=== PATIENT | male | born 1940 | race Caucasian/White ===

== ENCOUNTER 2016-03-22 10:24 | Inpatient (IN) | payer MEDICARE ==
[~2016-03-22] VITALS: Ht 185.4 cm; Wt 106.4 kg
--- NOTE | 2016-04-02 12:24 | MH ---
cc: TIN ARELLANO DATE OF ADMISSION: 04/11/2016 ADMITTING DIAGNOSIS Severe osteoarthritis of the left hip, pain left hip, gait disturbance. HISTORY OF PRESENT ILLNESS The patient is a 75-year-old white male who has experienced pain in his left hip of at least six-months duration. He had been accustomed to exercising on a regular basis which included swimming activities at the [facility] and riding a bicycle, and while conforming to this exercise routine he began to experience generalized soreness about the left groin area radiating into his knee. He was later seen by his primary care physician, Dr. Mc Benton, who ordered x-ray studies of both his lumbar spine and his left hip, the results of which identified multilevel degenerative changes throughout the lumbar region as well as severe osteoarthritis of the left hip. The patient later underwent a fluoroscopic-guided injection of his left hip for which he was able to note a definite trend of improvement with regards to his hip discomfort. He was also prescribed pain medication per Dr. Benton that he had utilized in a limited fashion secondary to constipation being associated with the medication. He presented to the undersigned physician in December of this past year indicating that he was having some difficulty conforming to his ambulatory activities. A review of his x-ray studies involving his right hip were without appreciable degenerative changes but radiographs of his left hip did demonstrate severe osteoarthritic involvement. Findings and treatment options were reviewed with the patient at that time. The pros and cons of continuing with conservative management versus operative intervention involving total hip replacement were outlined in detail. Emphasis was made regarding the fact that the decision to proceed with surgery would be left entirely to the patient's discretion. The patient considered options in this regard while he continued to conform to conservative modalities, but continued to have pain about the left hip area for which he was having ongoing difficulties conforming to his daily routine. He did subsequently undergo a repeat fluoroscopic injection of his left hip, again with only temporary relief being appreciated. He again returned to the office indicating that he was having increasing difficulties as related to all ambulatory activities and felt that he was ready to proceed with a more definitive course of treatment. Once again the involvement of total hip arthroplasty was outlined in detail for which the patient indicated his full understanding and expressed his desire to proceed accordingly. In compliance with his wishes he is currently being admitted in order that the above be accomplished. PAST MEDICAL HISTORY His past medical history, hospitalizations and surgeries have included: 1. Hemorrhoidectomy. 2. Arthroscopic surgery of his right knee x2 followed by 3. Total knee arthroplasty. 4. LASIK surgery of his right eye. 5. Colonoscopy. The patient's medical illnesses include hypertension. MEDICATIONS 1. Lisinopril 20 mg daily. 2. Hydrochlorothiazide 25 mg daily. 3. Simvastatin 40 mg daily. 4. Doxazosin 4 mg twice daily. 5. Atenolol 50 mg daily. 6. Temazepam 15 mg at bedtime. ALLERGIES THE PATIENT DESCRIBES A DRUG ALLERGY TO CORTISONE WHICH HAS RESULTED IN A RASH AND REDNESS OF THE FACIAL AREA BUT NO ASSOCIATED SHORTNESS OF BREATH. REVIEW OF SYSTEMS He does wear glasses. Denies headache, seizure or syncope. No sinus congestion but he does report a history of a deviated nasal septum secondary to a nasal fracture during his youth. Diminished auditory acuity for which hearing aids are utilized. No history of pneumonia or tuberculosis. No angina or heart disease. He is medically managed for hypertension. His appetite is good. He has frequent constipation for which he utilizes various [id number] products as well as giving himself a periodic enema. No hepatitis, gallbladder disease or ulcers. Positive history of hemorrhoids as noted. No urinary tract infection. No kidney stones. No prostate disease. No history of fractures. No psychiatric illness. His remaining review of systems is unremarkable and noncontributory. FAMILY HISTORY The patient has been 28 years, this being a second marriage. His is 56 years of age and described as being in good health. No children. Family history is otherwise positive for hypertension and heart disease. 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 He completed a high school education with 2 years of college thereafter. He admits to a three-pack per day use of tobacco for almost 25 years, having quit smoking at approximately 39 years of age. Ethanol consumption in the form of wine with dinner. PHYSICAL EXAMINATION Height 6 feet 1 inch, weight 226 pounds. GENERAL: An alert, oriented and responsive 75-year-old white male who sits quietly upon the examination table with no obvious distress. HEAD, EYES, EARS, NOSE, AND THROAT: Pupils are equally round and reactive to light. Bilateral corneal arcus. Extraocular movements full. External nares clear with deviated nasal septum to the right. External auditory canals clear. Dental intact. Mucous membranes pink and moist. Pharynx clear. NECK: Supple. Active range of motion with no significant pain. Carotid pulse palpable bilaterally. Trachea midline. Thyroid without enlargement. LUNGS: Clear to auscultation and percussion. BACK: No CVA tenderness. Mild discomfort of the lower lumbar spine indicated to be chronic in nature. HEART: Regular rhythm. No murmur or gallop. ABDOMEN: Soft, nontender. Bowel sounds present. RECTAL: Per primary care physician. EXTREMITIES: Left Hip: No localizing tenderness to palpation. There is restricted mobility of the hip joint in all ranges assessed being most pronounced with internal rotation and pain associated with the extremes of motion. An additional sensation of crepitation is elicited from the hip joint. Straight leg raising is negative at 80 degrees. José sign is positive. Distal sensory grossly intact. Antalgic gait. NEUROLOGIC: Cranial nerves II-XII grossly intact excluding diminished auditory acuity. IMPRESSION Severe osteoarthritis of the left hip pain, pain left hip, gait disturbance. PLAN Left total hip arthroplasty. The nature of the planned surgical procedure, the potential complications and risks associated, the expectations of surgery and the consent form were thoroughly reviewed with the patient prior to his admission to the hospital. Mukund has indicated his full understanding regarding all of the above and given consent to proceed with treatment as outlined. Medical evaluation and clearance for surgery will be completed by Dr. Mc Benton preoperatively. Tin Arellano MD NBS/BT /11:58 AM /12:10 PM
[2016-04-04] MEDS ORDERED: HYDR25TA5 PO (09:50)
[2016-04-04] MEDS ORDERED: HYDR-3516 PO (09:50)
[2016-04-04] MEDS ORDERED: LISI-515 PO (09:50)
[2016-04-04] MEDS ORDERED: ATEN50TA PO (09:50)
[2016-04-04] MEDS ORDERED: SIMV40TA PO (09:50)
[2016-04-04] MEDS ORDERED: DOXA1TAB34 PO (09:50)
[2016-04-04] MEDS ORDERED: TEMA30CA PO (09:50)
[2016-04-11] MEDS ORDERED: ceFAZolin 2 GM PREMIX 50 ML IV SCH (05:45)
[2016-04-11] MEDS ORDERED: LACTATED RINGER'S 1000 ML IV SCH (05:45)
[2016-04-11] MEDS ORDERED: METOPROLOL TARTRATE 25 MG TAB PO PRN (05:45)
[2016-04-11] MEDS ORDERED: DO NOT ADM ANY ANTICOAGULANT DRUGS XX PRN ×2 (05:45→09:40)
[2016-04-11] MEDS ORDERED: INSULIN HUMAN REGULAR 1,000 UNITS/10 ML VIAL SQ PRN (05:45)
[2016-04-11] MEDS ORDERED: POVIDONE IODINE 7.5% SCRUB 118 ML BOTTLE TOP SCH (05:45)
[2016-04-11] MEDS ORDERED: SODIUM CHLORID 0.9% 500 ML IV SCH (05:45)
[2016-04-11 05:50] VITALS: BP 110/70; PULSE 60; RESP 16; TEMP 98.3; TEMP 99.7; O2SAT 94
[2016-04-11] MEDS ORDERED: ceFAZolin INJ 1,000 MG VIAL ONE (06:16)
[2016-04-11] MEDS ORDERED: ACETAMINOPHEN 1000 MG/100 ML VIAL IV ONE (06:45)
[2016-04-11] MEDS ORDERED: MIDAZOLAM HCL 2 MG/2 ML VIAL ONE (06:45)
[2016-04-11] MEDS ORDERED: fentaNYL CITRATE 250 MCG/5 ML AMP ONE (06:45)
[2016-04-11] MEDS ORDERED: FAMOTIDINE 20 MG/2 ML VIAL ONE (06:45)
[2016-04-11] MEDS ORDERED: TRANEXAMIC ACID 1 GM PRIOR TO PROCEDURE IV SCH ×2 (07:00)
[2016-04-11] MEDS ORDERED: MORPHINE SULFATE 4 MG/ML INJ ONE (09:44)
[2016-04-11] MEDS ORDERED: *RESP: ALBUTEROL 2.5 MG/3 ML NEB (PRN) PERIprocedural Use ONLY NEB ONE (09:52)
[2016-04-11] MEDS ORDERED: MAGNESIUM HYDROXIDE SUSP 30 ML CUP PO PRN (10:00)
[2016-04-11] MEDS ORDERED: MISCELLANEOUS PHARMACY INFORMATION XX ONE (10:00)
[2016-04-11] MEDS ORDERED: ACETAMINOPHEN/HYDROcodone 325 MG/5 MG TAB PO PRN (10:00)
[2016-04-11] MEDS ORDERED: NALOXONE HCL 0.4 MG/ML AMP IV PRN (10:00)
[2016-04-11] MEDS ORDERED: BISACODYL 10 MG SUPP PR PRN (10:00)
[2016-04-11] MEDS ORDERED: Post-op Orders (for Pharmacy) MISC XX ONE (10:00)
[2016-04-11] MEDS ORDERED: diphenhydrAMINE HCL 25 MG CAP PO PRN (10:00)
[2016-04-11] MEDS ORDERED: TRANEXAMIC ACID INJ 1,000 MG in SODIUM CHLORIDE 0.9% INJ 100 ML IV SCH (10:00)
[2016-04-11] MEDS ORDERED: TRANEXAMIC ACID 1 GM POST-OP IV SCH ×2 (10:00)
[2016-04-11] MEDS ORDERED: ZOLPIDEM TARTRATE 5 MG TAB PO PRN (10:00)
[2016-04-11] MEDS ORDERED: ONDANSETRON HCL 4 MG/2 ML VIAL IVP PRN (10:00)
--- NOTE | 2016-04-11 10:10 | MP ---
cc: TIN EASON DATE OF OPERATION 11 April 2016 PREOPERATIVE DIAGNOSES Severe osteoarthritis of the left hip. Pain left hip. Gait disturbance. POSTOPERATIVE DIAGNOSES Severe osteoarthritis of the left hip. Pain left hip. Gait disturbance. PROCEDURE Left total hip arthroplasty. SURGEON MD Adan ANESTHESIA General endotracheal. INDICATIONS A 75-year-old white male with pain of the left hip of at least 6 months' duration. He had been accustomed to exercising on a regular basis which included swimming at the [employer] and riding a bicycle but while he was conforming to this exercise routine he began to experience generalized soreness about his left groin radiating into his knee. He was initially evaluated by his primary care physician Dr. Mc Benton who had ordered x-ray studies of both his lumbar spine and his left hip, the results of which identified multilevel degenerative changes throughout the lumbar region as well as severe osteoarthritis of his left hip. The patient later received a fluoroscopic-guided injection of his left hip which did afford him a definite trend of improvement with regards to his hip discomfort. He was also prescribed pain medication per Dr. Benton that he utilized in a limited fashion secondary to constipation being associated as a side-effect. He presented to the undersigned physician in December of this past year indicating he was having difficulty conforming to ambulatory activities. His x-ray studies did reveal degenerative changes of his left hip of a severe nature. The findings and treatment options were reviewed. The pros and cons of continuing with conservative management versus operative intervention involving total hip arthroplasty were outlined in detail. Emphasis was made regarding the fact that the decision to proceed with surgery would be left entirely to the patient's discretion. The patient considered his options in this regard while he continued to conform to conservative modalities but continuing to experience pain about the left hip for which he was having ongoing difficulties conforming to his daily routine. He subsequently received a repeat fluoroscopic injection which again afforded him only a temporary relief. He returned to the office in the more recent past indicating he was having increasing difficulty as related to all ambulatory activities and felt that he was ready to proceed with a more definitive course of treatment. Once again the involvement of total hip arthroplasty was outlined in detail for which the patient indicated his full understanding and expressed his desire to proceed accordingly. In compliance with his wishes, he has currently been admitted in order that total hip replacement be completed. FORMAT Following induction of satisfactory general anesthesia by endotracheal intubation as completed per the Department of Anesthesia, the patient was positioned upon the operating table in a right lateral decubitus fashion. The left hip and lower extremity proper were isolated with a U drape, thereafter being prepped with Betadine solution and draped into a sterile field in the routine manner. Prior to initiation of the actual procedure, the standard time-out protocol was completed. All parameters were appropriately addressed and confirmed by operating room personnel. A standard posterolateral approach to the hip was initiated through a sharp skin incision and developed through underlying subcutaneous tissue with hemostasis maintained by electrocautery. By deepening dissection the fascia overlying the gluteus musculature was exposed and thereafter sharply incised to the limits of the incision. The underlying gluteus fibers were divided with the Bovie on cutting current. Progressive dissection facilitated exposure of the short external rotators structures. The piriformis tendon was utilized as an anatomical landmark and division of these structures completed in a superior to inferior orientation and reflected medially exposing the posterior capsule. The sciatic nerve was protected. An L-shaped capsulotomy was accomplished through which a posterior dislocation of the femoral head was completed. Examination revealed severe degenerative changes throughout the majority of the femoral head with complete erosion of articular cartilage and subchondral bone exposed. The femoral template was positioned for alignment orientation. The neck was scored and thereafter divided with a power saw, the amputated segment being passed to the back table as surgical specimen. Attention was initially directed to the proximal femur. Cancellus bone was harvested. The tapered reamer was inserted for alignment orientation. Sequential rasping and broaching was accomplished from 7 through 14 mm with the calcar idalia being utilized at the 14-mm stage. The 14-mm stem was determined to be a favorable fit. The trial component being removed, attention was redirected to the acetabulum. The labrum and reactive soft tissue were sharply excised. Progressive reaming was accomplished from 48 through 53 mm. The 54 trial shell was positioned and determined be satisfactory. All trial components being removed, the wound was copiously irrigated with pulsating antibiotic solution, hemostasis maintained by electrocautery. Harvested cancellous bone was digitally packed into the acetabulum and thereafter a 54-mm Continuum Quinn was firmly seated in approximately 45 degrees inclination to the horizontal and slight anteversion. A single 25-mm, 6.5 cancellous screw was inserted superiorly to augment fixation. The permanent Continuum Trilogy high-wall acetabular liner was firmly seated into the acetabular cup and thereafter the 40-mm trial femoral broach was repositioned and a trial reduction followed utilizing a 36-mm modular head with -6-mm neck length adapter. The hip readily reduced and was carried through a passive range of motion with stability demonstrated at 90 degrees flexion and 45 degrees internal rotation. An open dislocation was completed and the trial femoral components were removed. The canal was thoroughly irrigated and dried and thereafter the permanent 40-mm echo biometric standard femoral stem was firmly seated and to a 36-mm ceramic head with -6-mm neck length adapter was attached and open reduction completed and repeat range of motion again noted stability as previously described. Final irrigation was accomplished with hemostasis maintained. The posterior capsule was repaired with 0 Vicryl suture. Piriformis tendon and short external rotators structures were reapproximated in a similar manner. Hemovac drain tubes were inserted through superior stab wounds, the fascia of the gluteus musculature was reapproximated with a running 0 Vicryl suture. The remaining portion of the wound was closed in layers in the routine manner, skin margins being reapproximated with a running subcuticular 3-0 Vicryl suture over which Steri-Strips were applied. Xeroform gauze and a bulky dry sterile dressing were placed. The patient was repositioned into a supine orientation when abduction splint was attached. Anesthesia was discontinued. He was thereafter transferred to a hospital bed and returned to the recovery room in satisfactory condition having tolerated his operative procedure well. Estimated blood loss was approximately 400 cc as determined per anesthesia. The femoral implants were of the Biomet saw tailer, the acetabular components completed by Quinn. MD IMMANUEL Calderon/SSB /9:38 AM /9:54 AM
[2016-04-11] MEDS: DEXT 5%-NACL 0.45% 1000 ML INJ 1,000 ML IV SCH ×2 (10:18→18:35)
--- NOTE | 2016-04-11 10:18 | RADRPT ---
EXAM DATE/TIME: 04/11/2016 09:52 [facility] COMPARISON: No previous studies available for comparison. INDICATIONS : Post-op left hip surgery. MEDICAL HISTORY : None. SURGICAL HISTORY : Left hip replacment. ENCOUNTER: Initial ACUITY: 2 days PAIN SCORE: Non-responsive. LOCATION: Left hip. FINDINGS: The patient is status post a total hip arthroplasty with a bipolar prosthesis. Prosthesis is well-sea roegr. Alignment is anatomic. A fracture is not appreciated. CONCLUSION: Anatomic alignment. Gibran Hu MD FACR Board Certified Radiologist. This report was verified electronically.
[2016-04-11] MEDS: MORPHINE SULFATE 30 MG/30 ML PCA IV SCH (10:19)
[2016-04-11 11:51] VITALS: BP 104/62; PULSE 64; RESP 17; TEMP 96.2; O2SAT 92
[2016-04-11] MEDS: PCA - TOTAL MG MORPHINE DELIVERED PER SHIFT SCH ×2 (13:00→21:12)
[2016-04-11] MEDS ORDERED: MAGNESIUM HYDROXIDE SUSP 30 ML CUP PO ONE (13:15)
[2016-04-11] MEDS ORDERED: NEOSTIGMINE 3 MG/3 ML SYR IV ONE (14:30)
[2016-04-11] MEDS ORDERED: ePHEDrine/NS 25 MG/5 ML SYR IV ONE (14:30)
[2016-04-11] MEDS ORDERED: PROPOFOL 200 MG/20 ML AMP IV ONE (14:30)
[2016-04-11] MEDS ORDERED: LACTATED RINGER'S 1000 ML INJ 1,000 ML IV ONE (14:30)
[2016-04-11] MEDS ORDERED: PHENYLEPH/NS 1000 MCG/10 ML SYR IV ONE (14:30)
[2016-04-11] MEDS ORDERED: ONDANSETRON HCL 4 MG/2 ML VIAL IV PUSH ONE (14:30)
[2016-04-11 16:00] VITALS: BP 109/55; PULSE 60; RESP 18; TEMP 96; O2SAT 94
[2016-04-11] MEDS ORDERED: ATEN25TA PO (17:38)
[2016-04-11] MEDS: HYDROCHLOROTHIAZIDE 25 MG TAB PO SCH (18:23)
[2016-04-11] MEDS: ATORVASTATIN 20 MG TAB PO SCH (18:24)
[2016-04-11] MEDS: LISINOPRIL 20 MG TAB PO SCH (18:25)
--- NOTE | 2016-04-11 19:21 | PD.CONS ---
HPI [facility] Consult Requested By Dr. Arellano Reason for Consult Medical management Primary Care Physician Silvino Benton MD Diagnoses: (1) Osteoarthritis (2) Hypertension (3) Insomnia (4) Constipation (5) S/P total hip arthroplasty History of Present Illness 75-year-old male with a medical history significant for hypertension, BPH, insomnia, constipation, and osteoarthritis admitted to the hospital for left hip arthroplasty. Patient is seen postop in his room. He reports a history of osteoarthritis involving the knees and the hip. Previously he had the right knee replaced. His left hip has been getting worse to the point he was having significant difficulties with walking. He failed conservative measures and was admitted for surgical intervention. Currently reports that he is feeling okay. He wants his medications to be on the same schedule that he is at home. He reports that his blood pressure has been controlled on the current medications. No episodes of chest pain or shortness of breath. He normally takes Dulcolax and enema as needed for his constipation. Review of Systems Constitutional: DENIES: Fever, Chills Endocrine: DENIES: Polydipsia, Polyuria Musculoskeletal: COMPLAINS OF: Joint pain, Stiffness, DENIES: Back pain Except as stated in HPI: all other systems reviewed are Neg Past Family Social History Allergies: Coded Allergies: Cortisone (Verified Allergy, Severe, Rash, 04/11/16) Past Medical History Osteoarthritis Hypertension BPH Insomnia Chronic constipation Past Surgical History Right knee replacement Hemorrhoidectomy Reported Medications Reported Meds & Active Scripts Active Reported Atenolol 25 Mg Tab 25 Mg PO HS Temazepam 30 Mg Cap 30 Mg PO HS Lisinopril 20 Mg Tab 20 Mg PO DAILY Simvastatin 40 Mg Tab 40 Mg PO DAILY Hydrochlorothiazide 25 Mg Tab 25 Mg PO DAILY Doxazosin (Doxazosin Mesylate) 4 Mg Tab 4 Mg PO BID Hydrocodone-Acetaminophen 5-325 mg Tab 1 Tab PO Q4H PRN Family History Both parents with history of heart disease and MS. Social History The patient quit smoking over 40 years ago. He drinks 1-2 glasses of wine with dinner. He reports that he is normally active with exercising. Physical Exam Vital Signs Vital Signs Date Time Temp Pulse Resp B/P Pulse Ox O2 Delivery O2 Flow Rate FiO2 04/11/16 16:00 96.0 60 18 109/55 94 04/11/16 13:00 18 04/11/16 11:51 96.2 64 17 104/62 92 04/11/16 10:30 97.7 62 12 124/58 95 Nasal Cannula 3 04/11/16 10:19 15 04/11/16 10:15 63 14 122/60 94 Nasal Cannula 3 04/11/16 10:00 60 13 114/62 94 Nasal Cannula 3 04/11/16 09:45 73 12 91/52 92 Nasal Cannula 3 04/11/16 09:38 97.7 62 16 96/52 95 Simple Mask 6 04/11/16 05:50 98.3 60 16 110/70 94 Physical Exam GENERAL: Elderly male in no apparent distress. SKIN: No rashes, ecchymoses or lesions. Cool and dry. HEAD: Atraumatic. Normocephalic. No temporal or scalp tenderness. EYES: Pupils equal round and reactive. Extraocular motions intact. No scleral icterus. No injection or drainage. ENT: Nose without drainage. NECK: Trachea midline. No JVD or lymphadenopathy. Supple, nontender, no meningeal signs. CARDIOVASCULAR: Regular rate and rhythm without murmurs, gallops, or rubs. RESPIRATORY: Clear to auscultation. Breath sounds equal bilaterally. No wheezes , rales, or rhonchi. GASTROINTESTINAL: Abdomen soft, non-tender, nondistended. No hepato-splenomegaly , or palpable masses. No guarding. MUSCULOSKELETAL: Postop left hip arthroplasty. Dressing appear intact. He has a drain in place that is draining sanguinous fluid. Neurovascularly intact distally. NEUROLOGICAL: Awake and alert. Normal speech. Laboratory Laboratory Tests Test 04/11/16 05:45 Blood Type O POSITIVE Antibody Screen NEGATIVE Blood Bank Comment Imaging Last Impressions Hip X-Ray 04/11/16 0946 Signed Impressions: Service Date/Time: Monday, April 11, 2016 09:52 - CONCLUSION: Anatomic alignment. Gibran Hu MD Assessment and Plan Problem List: (1) S/P total hip arthroplasty ICD Code: Z96.649 Status: Acute Plan: Routine postop care per orthopedics. Pain control. Patient has had issues with constipation in the past. We'll schedule Pamela-Colace. Follow urine output. He has had urinary retention in the past. Continue doxazosin DVT prophylaxis with Xarelto per orthopedics. (2) Osteoarthritis ICD Code: M19.90 Status: Acute (3) Hypertension ICD Code: I10 Status: Chronic Plan: Currently controlled. Continue antihypertensives. (4) Insomnia ICD Code: G47.00 Status: Acute Plan: Patient is on a regimen at home that works well for him. He takes temazepam at 9 PM and if needed takes another dose at midnight. Will continue the same. (5) Constipation ICD Code: K59.00 Status: Acute Plan: Schedule Pamela-Colace (6) BPH (benign prostatic hyperplasia) ICD Code: N40.0 Status: Acute Plan: Continue doxazosin. Discussed Condition With With RN. Problem Qualifiers (1) Hypertension: Qualified Code: I10 - Essential hypertension Chiki Turner MD Apr 11, 2016 19:21
[2016-04-11] MEDS: DOXAZOSIN MESYLATE 4 MG TAB PO SCH (19:33)
[2016-04-11] MEDS: ATENOLOL 25 MG TAB PO SCH (19:33)
[2016-04-11 20:00] VITALS: BP 121/60; PULSE 87; RESP 16; TEMP 97.2; O2SAT 93
[2016-04-11] MEDS ORDERED: ATENOLOL 25 MG TAB PO SCH (21:00)
[2016-04-11] MEDS ORDERED: DOXAZOSIN MESYLATE 4 MG TAB PO SCH (21:00)
[2016-04-11] MEDS: DOCUSATE SODIUM 50 MG/SENNA 8.6 MG TAB PO SCH (21:07)
[2016-04-11] MEDS: TEMAZEPAM 15 MG CAP PO SCH (21:07)
[2016-04-11] MEDS: SENNOSIDES 8.6 MG TAB PO SCH (21:07)
[2016-04-11] MEDS: MAGNESIUM HYDROXIDE SUSP 30 ML CUP PO SCH (21:07)
[2016-04-11] MEDS: SODIUM CHLORIDE 0.9% FLUSH 5 ML FLUSH IVF SCH (21:07)
[2016-04-12] VITALS (12 sets, daily range): BP systolic 85–130; BP diastolic 47–68; PULSE 56–77; RESP 16–18; TEMP 96–101.6; O2SAT 92–100
[2016-04-12] MEDS: TEMAZEPAM 15 MG CAP PO SCH ×2 (00:07→21:14)
[2016-04-12] MEDS: ACETAMINOPHEN 325 MG TAB PO PRN ×2 (00:07→10:16)
[2016-04-12] MEDS: DEXT 5%-NACL 0.45% 1000 ML INJ 1,000 ML IV SCH ×3 (02:30→18:25)
[2016-04-12] MEDS: MORPHINE SULFATE 30 MG/30 ML PCA IV SCH (02:33)
[2016-04-12] MEDS: PCA - TOTAL MG MORPHINE DELIVERED PER SHIFT SCH ×3 (05:27→22:00)
[2016-04-12] MEDS ORDERED: HYDR-3516 PO (06:18)
[2016-04-12] MEDS ORDERED: ASPI325T PO (06:18)
--- NOTE | 2016-04-12 06:20 | HHI.FF ---
Face to Face Verification Diagnosis: (1) Degenerative joint disease (DJD) of hip Physical Therapy Gait training Hip: Total hip, Protocol: Left, Abduction pillow while in bed Left LE Weight Bearing: WB as tolerated Left LE Range of Motion: Active ROM Nursing Dressing Changes: Daily dressing change I have seen patient Mukund Celestin on 04/12/16. My clinical findings support the need for the requested home health care services because: Limited ability to care for self High risk of falls I certify that my clinical findings support that this patient is homebound because: Post-op weakness Unsteady gait/balance Unsafe to leave home unassisted James Arellano MD Apr 12, 2016 06:20
[2016-04-12] MEDS ORDERED: MISC-163 RECTAL (06:25)
[2016-04-12] MEDS ORDERED: GETGO ROLLING W1 MI1 (06:25)
[2016-04-12 07:02] LABS: HEMATOCRIT 31.8 % (39.0-51.0); REVIEW FLAG FINAL
[2016-04-12] MEDS: LISINOPRIL 20 MG TAB PO SCH ×2 (09:00→09:44)
[2016-04-12] MEDS: DOXAZOSIN MESYLATE 4 MG TAB PO SCH ×3 (09:00→18:25)
[2016-04-12] MEDS: ATORVASTATIN 20 MG TAB PO SCH ×2 (09:00→09:44)
[2016-04-12] MEDS: HYDROCHLOROTHIAZIDE 25 MG TAB PO SCH ×2 (09:00→09:44)
[2016-04-12] MEDS: MAGNESIUM HYDROXIDE SUSP 30 ML CUP PO SCH ×2 (09:44→21:15)
[2016-04-12] MEDS: DOCUSATE SODIUM 50 MG/SENNA 8.6 MG TAB PO SCH ×3 (09:44→21:24)
[2016-04-12] MEDS: RIVAROXABAN 10 MG TAB PO SCH (09:44)
[2016-04-12] MEDS: SODIUM CHLORIDE 0.9% FLUSH 5 ML FLUSH IVF SCH ×2 (09:45→21:15)
[2016-04-12] MEDS: SODIUM CHLORIDE 0.9% FLUSH 5 ML FLUSH IVF PRN ×2 (10:14→11:05)
--- NOTE | 2016-04-12 16:40 | HHI.PR ---
Subjective Remarks Patient reports that he is feeling okay. He had urinary retention and a Baker has been placed overnight. Pain is controlled. Objective Vitals Vital Signs Date Time Temp Pulse Resp B/P Pulse Ox O2 Delivery O2 Flow Rate FiO2 04/12/16 16:00 99.0 62 18 94/54 92 04/12/16 14:00 18 04/12/16 12:00 96.0 70 18 109/68 100 04/12/16 08:00 101.3 68 16 106/57 93 04/12/16 05:28 100.2 04/12/16 05:27 18 04/12/16 04:00 101.5 71 18 107/58 97 04/12/16 02:33 18 04/12/16 00:00 101.4 77 17 130/61 93 04/11/16 21:12 18 04/11/16 20:00 97.2 87 16 121/60 93 I/O 04/11/16 04/11/16 04/11/16 04/12/16 04/12/16 04/12/16 07:00 15:00 23:00 07:00 15:00 23:00 Intake Total 1989 ml 360 ml 480 ml 2807 ml Output Total 440 ml 40 ml 775 ml 380 ml Balance 1549 ml 320 ml -295 ml 2427 ml Intake Oral 240 ml 360 ml 480 ml 600 ml IV Total 449 ml 2207 ml Other 1300 ml Output Urine Total 0 ml 750 ml 350 ml Drainage Total 40 ml 40 ml 25 ml 30 ml Estimated Blood Loss 400 ml # Voids 0 # Bowel Movements 0 0 0 0 Result Diagram: 04/12/16 0613 Imaging Last Impressions Hip X-Ray 04/11/16 0946 Signed Impressions: Service Date/Time: Monday, April 11, 2016 09:52 - CONCLUSION: Anatomic alignment. Gibran Hu MD Objective Remarks GENERAL: Elderly male in no apparent distress. NECK: Trachea midline. No JVD or lymphadenopathy. Supple, nontender, no meningeal signs. CARDIOVASCULAR: Regular rate and rhythm without murmurs, gallops, or rubs. RESPIRATORY: Clear to auscultation. Breath sounds equal bilaterally. No wheezes , rales, or rhonchi. GASTROINTESTINAL: Abdomen soft, non-tender, nondistended. No hepato-splenomegaly , or palpable masses. No guarding. MUSCULOSKELETAL: Postop left hip arthroplasty. Dressing appear intact. He has a drain in place that is draining sanguinous fluid. Neurovascularly intact distally. NEUROLOGICAL: Awake and alert. Normal speech. A/P Problem List: (1) S/P total hip arthroplasty ICD Code: Z96.649 Status: Acute Plan: Routine postop care per orthopedics. Pain control. Patient has had issues with constipation in the past. We'll schedule Pamela-Colace. Continue Baker. Plan to have a voiding trial tomorrow. Continue doxazosin DVT prophylaxis with Xarelto per orthopedics. (2) Osteoarthritis ICD Code: M19.90 Status: Acute (3) Hypertension ICD Code: I10 Status: Chronic Plan: Currently controlled. Continue antihypertensives. (4) Insomnia ICD Code: G47.00 Status: Acute Plan: Patient is on a regimen at home that works well for him. He takes temazepam at 9 PM and if needed takes another dose at midnight. Will continue the same. (5) Constipation ICD Code: K59.00 Status: Acute Plan: Schedule Pamela-Colace (6) BPH (benign prostatic hyperplasia) ICD Code: N40.0 Status: Acute Plan: Continue doxazosin. Problem Qualifiers (1) Hypertension: Qualified Code: I10 - Essential hypertension Chiki Turner MD Apr 12, 2016 16:40
[2016-04-12] MEDS: ATENOLOL 25 MG TAB PO SCH (18:25)
[2016-04-12] MEDS: SENNOSIDES 8.6 MG TAB PO SCH ×2 (21:15→21:24)
[2016-04-13] VITALS (7 sets, daily range): BP systolic 106–127; BP diastolic 48–62; PULSE 58–62; RESP 16–19; TEMP 96–99.2; O2SAT 93–95
[2016-04-13] MEDS: DEXT 5%-NACL 0.45% 1000 ML INJ 1,000 ML IV SCH ×3 (02:00→14:24)
[2016-04-13] MEDS: ACETAMINOPHEN/HYDROcodone 325 MG/5 MG TAB PO PRN ×2 (05:40→09:37)
[2016-04-13] MEDS: PCA - TOTAL MG MORPHINE DELIVERED PER SHIFT SCH ×3 (06:00→22:00)
[2016-04-13] MEDS: DOCUSATE SODIUM 50 MG/SENNA 8.6 MG TAB PO SCH ×3 (09:00→20:19)
[2016-04-13] MEDS: MAGNESIUM HYDROXIDE SUSP 30 ML CUP PO SCH ×3 (09:00→20:19)
[2016-04-13] MEDS: ATORVASTATIN 20 MG TAB PO SCH (09:24)
[2016-04-13] MEDS: LISINOPRIL 20 MG TAB PO SCH (09:24)
[2016-04-13] MEDS: RIVAROXABAN 10 MG TAB PO SCH (09:24)
[2016-04-13] MEDS: DOXAZOSIN MESYLATE 4 MG TAB PO SCH ×2 (09:24→17:01)
[2016-04-13] MEDS: HYDROCHLOROTHIAZIDE 25 MG TAB PO SCH (09:25)
[2016-04-13] MEDS: DOCUSATE SODIUM 100 MG CAP PO PRN ×2 (09:25→11:21)
[2016-04-13] MEDS: SODIUM CHLORIDE 0.9% FLUSH 5 ML FLUSH IVF SCH ×2 (09:28→20:19)
--- NOTE | 2016-04-13 14:12 | HHI.PR ---
Subjective Remarks Patient reports that his pain is controlled. Discussed with RN. He is constipated but has been refusing laxatives. He will like the Baker catheter out. Objective Vitals Vital Signs Date Time Temp Pulse Resp B/P Pulse Ox O2 Delivery O2 Flow Rate FiO2 04/13/16 08:00 96.2 60 19 106/48 95 04/13/16 04:00 99.2 61 18 112/56 93 04/13/16 00:00 99.2 58 16 107/53 93 04/12/16 20:00 98.3 56 18 110/56 96 04/12/16 16:00 99.0 62 18 94/54 92 I/O 04/12/16 04/12/16 04/12/16 04/13/16 04/13/16 04/13/16 07:00 15:00 23:00 07:00 15:00 23:00 Intake Total 480 ml 2807 ml 1204 ml 240 ml Output Total 775 ml 380 ml 300 ml 1100 ml 801 ml Balance -295 ml 2427 ml 904 ml -860 ml -801 ml Intake Oral 480 ml 600 ml 720 ml 240 ml IV Total 2207 ml 484 ml Output Urine Total 750 ml 350 ml 300 ml 1100 ml 800 ml Stool Total 1 ml Drainage Total 25 ml 30 ml # Bowel Movements 0 0 0 0 Result Diagram: 04/12/16 0613 Objective Remarks GENERAL: Elderly male in no apparent distress. NECK: Trachea midline. No JVD or lymphadenopathy. Supple, nontender, no meningeal signs. CARDIOVASCULAR: Regular rate and rhythm without murmurs, gallops, or rubs. RESPIRATORY: Clear to auscultation. Breath sounds equal bilaterally. No wheezes , rales, or rhonchi. GASTROINTESTINAL: Abdomen soft, non-tender, nondistended. No hepato-splenomegaly , or palpable masses. No guarding. MUSCULOSKELETAL: Postop left hip arthroplasty. Dressing appear intact. Neurovascularly intact distally. NEUROLOGICAL: Awake and alert. Normal speech. A/P Problem List: (1) S/P total hip arthroplasty ICD Code: Z96.649 Status: Acute Plan: Routine postop care per orthopedics. Pain control. Patient has had issues with constipation in the past. Continue Pamela-Colace. Voiding trial today. Discussed treatment for constipation with the patient. He agreed to try medications. Continue doxazosin DVT prophylaxis with Xarelto per orthopedics. (2) Osteoarthritis ICD Code: M19.90 Status: Acute (3) Hypertension ICD Code: I10 Status: Chronic Plan: Currently controlled. Continue antihypertensives. (4) Insomnia ICD Code: G47.00 Status: Acute Plan: Patient is on a regimen at home that works well for him. He takes temazepam at 9 PM and if needed takes another dose at midnight. Will continue the same. (5) Constipation ICD Code: K59.00 Status: Acute Plan: Schedule Pamela-Colace. He is advised to try milk of magnesia, Dulcolax suppository as needed. (6) BPH (benign prostatic hyperplasia) ICD Code: N40.0 Status: Acute Plan: Continue doxazosin. Voiding trial today. Problem Qualifiers (1) Hypertension: Qualified Code: I10 - Essential hypertension Chiki Turner MD Apr 13, 2016 14:12
[2016-04-13] MEDS: ATENOLOL 25 MG TAB PO SCH (17:01)
[2016-04-13] MEDS: TEMAZEPAM 15 MG CAP PO SCH ×2 (20:19)
[2016-04-13] MEDS: SENNOSIDES 8.6 MG TAB PO SCH (20:20)
[2016-04-14] VITALS: BP 133/63; PULSE 57; RESP 16; TEMP 99; O2SAT 94
[2016-04-14] MEDS: TEMAZEPAM 15 MG CAP PO SCH (01:39)
[2016-04-14] MEDS: DEXT 5%-NACL 0.45% 1000 ML INJ 1,000 ML IV SCH ×2 (02:00→10:00)
[2016-04-14] MEDS: PCA - TOTAL MG MORPHINE DELIVERED PER SHIFT SCH ×2 (06:00→14:00)
[2016-04-14 08:00] VITALS: BP 145/72; PULSE 54; RESP 16; TEMP 97.9; O2SAT 96
[2016-04-14] MEDS: DOCUSATE SODIUM 50 MG/SENNA 8.6 MG TAB PO SCH (09:00)
[2016-04-14] MEDS: MAGNESIUM HYDROXIDE SUSP 30 ML CUP PO SCH (09:00)
[2016-04-14] MEDS: RIVAROXABAN 10 MG TAB PO SCH (09:32)
[2016-04-14] MEDS: ATORVASTATIN 20 MG TAB PO SCH (09:32)
[2016-04-14] MEDS: LISINOPRIL 20 MG TAB PO SCH (09:32)
[2016-04-14] MEDS: DOXAZOSIN MESYLATE 4 MG TAB PO SCH (09:32)
[2016-04-14] MEDS: HYDROCHLOROTHIAZIDE 25 MG TAB PO SCH (09:33)
[2016-04-14] MEDS: SODIUM CHLORIDE 0.9% FLUSH 5 ML FLUSH IVF SCH (09:35)
[2016-04-14 10:23] VITALS: O2SAT 96
[2016-04-14] MEDS ORDERED: TEMA30CA PO (11:38)
[2016-04-14 12:00] VITALS: BP 138/59; PULSE 63; RESP 18; TEMP 95.8; O2SAT 96
--- NOTE | 2016-04-14 16:03 | HHI.PR ---
Subjective Remarks Patient is feeling better. Pain is controlled. He will be discharged to the alf facility today. Objective Vitals Vital Signs Date Time Temp Pulse Resp B/P Pulse Ox O2 Delivery O2 Flow Rate FiO2 04/14/16 12:00 95.8 63 18 138/59 96 04/14/16 10:23 96 21 04/14/16 08:00 97.9 54 16 145/72 96 04/14/16 00:00 99.0 57 16 133/63 94 04/13/16 20:00 98.2 62 16 119/59 95 04/13/16 18:28 94 21 I/O 04/13/16 04/13/16 04/13/16 04/14/16 04/14/16 04/14/16 07:00 15:00 23:00 07:00 15:00 23:00 Intake Total 240 ml 480 ml 924 ml 240 ml Output Total 1100 ml 851 ml 450 ml 550 ml Balance -860 ml -371 ml 474 ml -310 ml Intake Oral 240 ml 480 ml 480 ml 240 ml IV Total 444 ml Output Urine Total 1100 ml 850 ml 450 ml 550 ml Stool Total 1 ml # Voids 1 # Bowel Movements 0 0 0 1 Result Diagram: 04/12/16 0613 Objective Remarks GENERAL: Elderly male in no apparent distress. NECK: Trachea midline. No JVD or lymphadenopathy. Supple, nontender, no meningeal signs. CARDIOVASCULAR: Regular rate and rhythm without murmurs, gallops, or rubs. RESPIRATORY: Clear to auscultation. Breath sounds equal bilaterally. No wheezes , rales, or rhonchi. GASTROINTESTINAL: Abdomen soft, non-tender, nondistended. No hepato-splenomegaly , or palpable masses. No guarding. MUSCULOSKELETAL: Postop left hip arthroplasty. Dressing appear intact. Neurovascularly intact distally. NEUROLOGICAL: Awake and alert. Normal speech. A/P Problem List: (1) S/P total hip arthroplasty ICD Code: Z96.649 Status: Acute Plan: Routine postop care per orthopedics. Pain control. Patient has had issues with constipation in the past. Continue Pamela-Colace. DVT prophylaxis with Xarelto per orthopedics. Cleared for discharge to alf facility to continue rehabilitation. (2) Osteoarthritis ICD Code: M19.90 Status: Acute (3) Hypertension ICD Code: I10 Status: Chronic Plan: Currently controlled. Continue antihypertensives. (4) Insomnia ICD Code: G47.00 Status: Acute Plan: Patient is on a regimen at home that works well for him. He takes temazepam at 9 PM and if needed takes another dose at midnight. Will continue the same. (5) Constipation ICD Code: K59.00 Status: Acute Plan: Stool softeners when necessary. (6) BPH (benign prostatic hyperplasia) ICD Code: N40.0 Status: Acute Plan: Continue doxazosin. Patient had some urinary retention postop requiring a Baker catheter. He successfully passed a voiding trial. Discharge Planning Hospitalist clear for discharge. Problem Qualifiers (1) Hypertension: Qualified Code: I10 - Essential hypertension Chiki Turner MD Apr 14, 2016 16:03
--- NOTE | 2016-04-16 05:51 | MD ---
cc: YESENIA ODOM M.D. [facility] ADMISSION DATE: 04/11/2016 DISCHARGE DATE: 04/14/2016 ADMISSION DIAGNOSES Severe osteoarthritis of the left hip. Pain left hip. Gait disturbance. DISCHARGE DIAGNOSES Severe osteoarthritis of the left hip. Pain left hip. Gait disturbance. HISTORY This is a 75-year-old white male with pain of the left hip of at least 6 months' duration. He had been accustomed to exercising on a regular basis which included swimming activities at the [facility] and riding a bicycle and while conforming to this exercise program he began to experience generalized soreness about the left groin area radiating into his knee. He was later seen by his primary care physician Dr. Mc Odom who ordered x-ray studies of both his lumbar spine and his left hip the results of which identified multilevel degenerative changes throughout the lumbar region as well as severe osteoarthritis of the left hip. The patient later underwent a fluoroscopic-guided injection of the left hip for which he was able to note a definite trend of improvement for a limited period of time. He was also prescribed pain medication per Dr. Odom that he was utilizing in a limited fashion secondary to constipation being associated. He presented to the undersigned physician in December of this past year indicating he was having difficulty conforming to ambulatory activities. A review of his x-ray studies about the right hip were without appreciable degenerative changes but radiographs of his left hip did demonstrate severe osteoarthritic involvement. Findings and treatment options were reviewed with the patient at that time. The pros and cons of continuing with conservative management versus operative intervention involving a total hip replacement were outlined in detail. Emphasis was made regarding the fact that the decision to proceed with surgery would be left entirely to the patient's discretion. The patient considered his options in this regard while conforming to conservative modalities but continued to have pain about his left hip with ongoing difficulties conforming to his daily routine. He later underwent a repeat fluoroscopic injection, again with only temporary relief being noted. He again returned to the office indicating he was having increasing difficulties as related to all ambulatory activities and felt he was ready to proceed with a more definitive course of treatment. The involvement of total hip arthroplasty was outlined in detail for which the patient indicated full understanding and expressed his desire to proceed accordingly. In compliance with his wishes he was scheduled for admission at this time in order that the above be accomplished. His physical examination at the time admission revealed no localizing tenderness about the left hip. There was restricted mobility of the hip joint in all ranges assessed, being most pronounced with internal rotation and pain at the extreme of motion. There was a sensation of crepitation elicited about the hip joint. Straight-leg raising was negative at 80 degrees. José sign positive. Distal sensory intact. Antalgic gait. HOSPITAL COURSE Prior to admission to the hospital the patient had undergone medical evaluation and clearance for surgery as completed by his primary care physician Dr. Mc Odom. He was taken to the operating room on 11 April 2016 and on that date underwent a left total hip arthroplasty completed in an uncomplicated manner. The patient was noted to have tolerated his operative procedure well and his postoperative course was stable thereafter. Hemoglobin/hematocrit assessment postoperatively was 11.1 and 31.8 respectively. The patient was progressively mobilized under the guidance of physical therapy being permitted weightbearing to tolerance about the left lower extremity. Follow-up examination of his surgical wound noted to be intact, healing favorably, no evidence of infection. Medical followup per the hospitalist service, DVT prophylaxis initiated, Training Development Manager consulted to assist with discharge planning. Recommendation was made for temporary rehab placement for which the patient was in agreement. Plans were finalized in this regard and pending medical clearance he was scheduled for transfer on the third postoperative day at which time he was noted to be making slow but steady progress with regards to his rehab program. FOLLOWUP He was scheduled to be seen in office followup in approximately four weeks. CONDITION ON DISCHARGE His condition at the time of discharge stable. PROGNOSIS Favorable DISCHARGE MEDICATIONS 1. Hydrocodone 5/325 #60. 2. Aspirin 325 mg one tablet twice daily for 4 weeks #60. MD IMMANUEL Calderon/SSB /6:41 AM /5:40 AM
== END 2016-04-14 14:21 | DRG 470 ==
LOC: HSDI 04-11 05:09 → EDUNIT# 04-11 07:30 → N06B 04-11 11:07
PROVIDERS: ADMIT Orthopaedic Surgery; ATTEND Orthopaedic Surgery
PROC: 0SRB0JA Replacement of Left Hip Joint with Synthetic Substitute, Uncemented, Open Approach (ICD-10-PCS; principal; 2016-04-11 06:49)
DX: M16.12 Unilateral primary osteoarthritis, left hip (principal); I10 Essential (primary) hypertension; G47.00 Insomnia, unspecified; R26.89 Other abnormalities of gait and mobility; N40.1 Benign prostatic hyperplasia with lower urinary tract symptoms; K59.00 Constipation, unspecified; R33.8 Other retention of urine; Z87.891 Personal history of nicotine dependence; Z88.8 Allergy status to other drugs, medicaments and biological substances
CPT/HCPCS: 73501; 85014; 85018; 86850; 86900; 86901; 88304; 88305; 88311; 94150; 94664; C1776; J0131; J0690; J2250; J2270; J2370; J2405; J2710; J3010; J7120; J7613

== ENCOUNTER → 2016-04-04 | Outpatient (CLI) | payer MEDICARE ==
[~2016-04-04] MED LIST: ASPI325T PO; ATEN25TA PO; ATEN50TA PO; DOXA1TAB34 PO; GETGO ROLLING W1 MI1; HYDR-3516 PO; HYDR25TA5 PO; LISI-515 PO; MISC-163 RECTAL; SIMV40TA PO; TEMA30CA PO
--- NOTE | 2016-04-04 10:23 | RADRPT ---
EXAM DATE/TIME: 04/04/2016 10:16 [facility] COMPARISON: No previous studies available for comparison. INDICATIONS : Evaluate for pneumothorax, pneumonia, and communicable disease. Pre op right total hip replacement. MEDICAL HISTORY : None. SURGICAL HISTORY : None. ENCOUNTER: Initial ACUITY: 1 day PAIN SCORE: 0/10 LOCATION: chest FINDINGS: PA and lateral views of the chest demonstrate the lungs to be symmetrically aerated without evidence of mass, infiltrate or effusion. Mild atherosclerotic calcifications are present in the aorta. The c ardiomediastinal contours are unremarkable. Osseous structures are intact. CONCLUSION: No acute disease. Vivek Gee MD on April 04, 2016 at 10:19 Board Certified Radiologist. This report was verified electronically.
[2016-04-04 11:42] LABS: HEMATOCRIT 40.3 % (39.0-51.0); MEAN CORPUSCULAR HGB CONC 33.3 % (32.0-36.0); PLATELET COUNT 223 TH/MM3 (150-450); RED BLOOD COUNT 4.63 MIL/MM3 (4.50-5.90); RED CELL DISTRIBUTION WIDTH 12.8 % (11.6-17.2); REVIEW FLAG FINAL; WHITE BLOOD COUNT 6.3 TH/MM3 (4.0-11.0)
[2016-04-04 11:42] LABS: BLOOD, URINE NEG (NEG); GLUCOSE,URINE NEG (NEG); HYALINE CAST, URINE 1 /lpf (RARE); KETONE, URINE NEG (NEG); MUCUS URINE FEW /lpf (OCC); NITRITE,URINE NEG (NEG); SQUAMOUS EPITHELIAL CELL URINE <1 /hpf (0-5); URINE COLOR YELLOW (YELLW/STRAW)
[2016-04-04 11:44] LABS: COMMENT (UR) CULT NOT INDICATED; CULTURE IF INDICATED CULT NOT INDICATED
[2016-04-04 11:48] LABS: PROTHROMBIN TIME - PATIENT 11.3 SEC (9.8-11.6)
[2016-04-04 12:06] LABS: BICARBONATE 32.1 MEQ/L (21.0-32.0); POTASSIUM 3.5 MEQ/L (3.5-5.1)
--- NOTE | 2016-04-05 11:38 | EKG ---
Date Performed: 04/04/2016 Time Performed: 09:35:42 PTAGE: 75 years EKG: SINUS BRADYCARDIA WITH FIRST DEGREE AV BLOCK ABNORMAL ECG NO PREVIOUS TRACING DOCTOR: Rodolfo Oquendo Interpretating Date/Time 04/05/2016 11:36:15
== END ==
LOC: CPRE 10:09
PROVIDERS: ATTEND Orthopaedic Surgery
DX: Z01.810 Encounter for preprocedural cardiovascular examination (principal); Z01.812 Encounter for preprocedural laboratory examination; M16.12 Unilateral primary osteoarthritis, left hip; R00.1 Bradycardia, unspecified; I44.0 Atrioventricular block, first degree
CPT/HCPCS: 36415; 71020; 80048; 81001; 85027; 85610; 93005

== ENCOUNTER 2017-09-27 05:14 | Inpatient (IN) ==
[2017-09-27] MEDS ORDERED: Sodium Chlor 0.9% Inj 500 ML IV.SIG SCH (06:00)
[2017-09-27] MEDS ORDERED: Chlorhexidine Gluconate 2% 1 Pack (2 Cloths) TOPICAL SCH (06:00)
[2017-09-27] MEDS ORDERED: Metoprolol Tartrate 25 MG Tablet PO SCH (06:00)
[2017-09-27] MEDS ORDERED: MORPHINE IRRIGATION SCH ×6 (08:00)
[2017-09-27] MEDS ORDERED: SODIUM CHLOR 0.9% IRRIGATION SCH ×6 (08:00)
[2017-09-27] MEDS ORDERED: BUPIVACAINE LIPOSO 1.3% IRRIGATION SCH ×6 (08:00)
[2017-09-27] MEDS ORDERED: ceFAZolin 2 GM Premix Inj 0 GM/0 ML PIGGYBACK IV.SIG ONE (08:05)
[2017-09-27] MEDS ORDERED: Sugammadex Inj 200 MG/2 ML Vial IV.PUSH ONE (09:12)
[2017-09-27] MEDS ORDERED: Bisacodyl 10 MG Supp RECTAL PRN (10:59)
[2017-09-27] MEDS ORDERED: Naloxone Inj 0.4 MG/ML Vial IV.PUSH PRN ×3 (10:59→12:38)
[2017-09-27] MEDS ORDERED: Acetaminophen 325 MG Tablet PO PRN (10:59)
[2017-09-27] MEDS ORDERED: Enoxaparin Inj 30 MG/0.3 ML Syringe SQ SCH (11:00)
--- NOTE | 2017-09-27 11:17 | P.OP ---
Date of procedure: 09/27/17 Anesthesia: GETA Surgeon: Hema Hagan MD Operation and Findings: PREOPERATIVE DIAGNOSIS 1. Right Middle Lobe Lung Cancer 2. Second right middle lobe lung nodule 3. COPD POSTOPERATIVE DIAGNOSIS same PROCEDURES 1. Right posterolateral Muscle Sparing Thoracotomy 2. Right Middle Lobectomy 3. Mediastinal Lymph Node Dissection 4. Intercostal Nerve Block SURGEON Hema Hagan MD CHINESE TEACHER Sheba Gill CST FA ANESTHESIA General double-lumen endotracheal. CREDIT COUNSELOR ANDRES Carbajal MD DRAINS [address] COUNTS Needle, sponge, and instrument counts were correct. COMPLICATIONS None. INDICATION FOR PROCEDURE The patient is a 77yo gentleman with right middle lobe lung cancer presenting for surgical resection of above pathology. DESCRIPTION OF PROCEDURE The patient was brought to the operating suite and placed in supine position. Following satisfactory induction of general double-lumen endotracheal anesthesia , the patient was placed in the left lateral decubitus position. The right chest and surrounding area was then prepped and draped in the usual sterile fashion. A standard muscle-sparing posterolateral thoracotomy was performed and the serratus anterior muscle spared. The pleural space was entered. Exploration of the chest revealed a dominant mass deep within the parenchyma of the middle lobe with an additional nodule on the anterior surface of the right middle lobe with associated and surrounding anthracosis. The inferior pulmonary ligament was divided. The pulmonary arterial supply to the medical lobe was identified, dissected free and divided as was the pulmonary venous supply. The bronchus was then dissected free, clamped and the remaining lung was insufflated without any difficulty. Lymph node dissections of level 4, 7, 8, 9, 10 and 11 were performed along with the course of this removal. Some of these were retained with the specimen. Specimen was removed from the chest. The remaining lung was submerged under sterile water and inflated. No air leaks were identified. At this point the closure was undertaken. A 28-Kenyan chest tube was placed. Intercostal nerve block was performed at the level of the incision and 3 rib spaces above and below using Exparel with Decadron solution. The pericostal space was approximated with interrupted #1 Vicryl sutures in a pericostal fashion. The serratus fascia and Latissimus dorsi were closed with running 0- Vicryl and the remaining wounds closed with 3-0, and 4-0 Monocryl. The patient tolerated the procedure well and postoperatively went to the PACU in stable condition.
[2017-09-27] MEDS ORDERED: Post-op Orders (for Pharmacy) OTHER STA (11:37)
[2017-09-27] MEDS ORDERED: fentaNYL Citrate Inj 250 MCG/5 ML Ampul ONE ×2 (11:51)
[2017-09-27] MEDS ORDERED: *Meperidine Inj 25 MG/ML Vial PERIprocedural Use ONLY ONE (11:59)
[2017-09-27] MEDS ORDERED: Nitroglycerin Drip Premix 50 MG/250 ML BOTTLE IV.SIG ONE (12:00)
[2017-09-27] MEDS ORDERED: Lidocaine PF 1% Inj 5 ML Syringe INFILTRATN ONE (12:00)
[2017-09-27] MEDS ORDERED: Phenylephrine/NS 1000 MCG/10ML Syringe IV.PUSH ONE (12:00)
[2017-09-27] MEDS ORDERED: Glycopyrrolate Inj 1 MG/5 ML Syringe IV.PUSH ONE (12:00)
[2017-09-27] MEDS ORDERED: Succinylcholine Inj 100 MG/5 ML Syringe IV.PUSH ONE (12:00)
[2017-09-27] MEDS ORDERED: hydrALAZINE HCl Inj 20 MG/ML Vial IV.PUSH ONE (12:00)
[2017-09-27] MEDS ORDERED: Sodium Chlor 0.9% Inj 500 ML IV.SIG ONE (12:00)
[2017-09-27] MEDS ORDERED: Dextrose 5% in Water Inj 100 ML IV.SIG ONE (12:00)
[2017-09-27] MEDS ORDERED: Morphine Inj 30 MG/30 ML PCA.VIAL PCA ONE (12:18)
--- NOTE | 2017-09-27 12:28 | XR ---
EXAM DATE: 09/27/2017 12:17 PM EDT AGE/SEX: 77 years / Male INDICATIONS: Status post right thoracotomy for middle lobe lobectomy for lung cancer. Interval place ment of chest tube. CLINICAL DATA: This is the patient's initial encounter. Patient reports that signs and symptoms have been present for 1 day and indicates a pain score of 8/10. MEDICAL/SURGICAL HISTORY: None. . Thoracotomy. [place] [facility] [place]. . FINDINGS: A single AP supine portable view of the chest was obtained and demonstrates a right-sided chest tube in place. There is no visualized pneumothorax. There is a small amount of subcutaneous emphysema note d over the right upper and lateral chest wall. There is mild hazy opacity in the right perihilar lila on and left lung base. The heart size is within normal limits with atherosclerotic changes again note d in the aorta. Overlying electrocardiogram leads and oxygen tubing are present. CONCLUSION: 1. Right-sided chest tube in place with no pneumothorax. 2. Hazy opacity in the right perihilar region likely representing postsurgical change from the right middle lobectomy. 3. Mild patchy opacity at the left lung base most characteristic of atelectasis. Electronically signed by: Vivek Gee MD 09/27/2017 12:27 PM EDT
[2017-09-27] MEDS ORDERED: Morphine Inj 30 MG/30 ML PCA.VIAL PCA PRN (12:38)
[2017-09-27] MEDS ORDERED: Morphine Inj 4 MG/ML Vial IV.SIG ONE (12:45)
[2017-09-27] MEDS: Ketorolac Inj 30 MG/ML (IVP) Vial IV.PUSH SCH ×2 (13:06→18:00)
[2017-09-27] MEDS: ceFAZolin Inj 2,000 MG in Sodium Chlor 0.9% Inj 80 ML IV.SIG SCH ×2 (15:45→23:42)
[2017-09-27] MEDS: Doxazosin 4 MG Tablet PO SCH (21:01)
[2017-09-27] MEDS: Temazepam 15 MG Capsule PO PRN (21:14)
[2017-09-27] MEDS: Senna/Docusate Sodium 8.6/50 MG Tablet PO SCH (23:40)
[2017-09-28] MEDS: Ketorolac Inj 30 MG/ML (IVP) Vial IV.PUSH SCH ×2 (01:00→08:05)
[2017-09-28 04:31] LABS: Baso % (Auto) 0.2 % (0.0-2.0); Eos # (Auto) 0.2 th/mm3 (0.0-0.4); Eos % (Auto) 2.7 % (0.0-4.0); Hematocrit 35.9 % (39.0-51.0); Hemoglobin 12.2 gm/dL (13.0-17.0); Lymph # (Auto) 0.8 th/mm3 (1.0-4.8); Lymph % (Auto) 8.9 % (9.0-44.0); Mean Corpuscular HGB Conc 33.9 % (32.0-36.0); Mean Corpuscular Hemoglobin 29.4 pg (27.0-34.0); Mean Corpuscular Volume 86.8 fL (80.0-100.0); Mean Platelet Volume 7.8 fL (7.0-11.0); Mono # (Auto) 0.8 th/mm3 (0.0-0.9); Mono % (Auto) 9.1 % (0.0-8.0); Neut # (Auto) 6.7 th/mm3 (1.8-7.7); Neut % (Auto) 79.1 % (16.0-70.0); Platelet Count 164 th/mm3 (150-450); Red Blood Count 4.14 mil/mm3 (4.50-5.90); Red Cell Distribution Width 13.4 % (11.6-17.2); White Blood Count 8.5 th/mm3 (4.0-11.0)
[2017-09-28 05:05] LABS: Calcium 7.5 mg/dL (8.5-10.1); Carbon Dioxide 31.2 meq/L (21.0-32.0); Potassium 3.7 meq/L (3.5-5.1)
[2017-09-28] MEDS: hydroCHLOROthiazide 25 MG Tablet PO SCH ×2 (08:05→08:25)
[2017-09-28] MEDS: Doxazosin 4 MG Tablet PO SCH ×3 (08:05→20:34)
[2017-09-28] MEDS: Atenolol 50 MG Tablet PO SCH ×2 (08:05→08:25)
[2017-09-28] MEDS: Senna/Docusate Sodium 8.6/50 MG Tablet PO SCH ×2 (08:05→20:37)
--- NOTE | 2017-09-28 11:11 | XR ---
EXAM DATE: 09/28/2017 11:05 AM EDT AGE/SEX: 77 years / Male INDICATIONS: Post Right Middle Lobectomy. CLINICAL DATA: This is the patient's subsequent encounter. Patient reports that signs and symptoms h ave been present for 2 days and indicates a pain score of 0/10. MEDICAL/SURGICAL HISTORY: Hypertension. . Thoracotomy. Hip replacement. Knee replacement. Right Middle Lobectomy [place] [facility] [place]. . FINDINGS: A single AP view of the chest demonstrates right mid lung and right basilar density. Right-sided ches t tube without pneumothorax. Heart normal in size. The cardiomediastinal contours are unremarkable. Osseous structures are intact. CONCLUSION: Right midlung and right basilar density, likely atelectasis. No pneumothorax Electronically signed by: Teja Mcghee MD 09/28/2017 11:10 AM EDT
[2017-09-28] MEDS: Enoxaparin Inj 30 MG/0.3 ML Syringe SQ SCH (11:16)
--- NOTE | 2017-09-28 13:37 | P.PNCV ---
- Note CVT: Post Op Day #: 1 Subjective/Hospital Course: 09/28/17 Doing well, had a syncopal episode this morning with getting up following using morphine GRIZZLYMAN. Currently A and O x 4 and asymptomatic. Objective: Vital Signs - 24 hr 09/27/17 15:00 09/27/17 16:00 09/27/17 17:00 Temperature 97.9 F Pulse Rate 56 L 54 L 58 L Respiratory Rate 14 Blood Pressure 115/58 L Pulse Oximetry 95 09/27/17 17:27 09/27/17 18:00 09/27/17 19:00 Temperature Pulse Rate 60 57 L 55 L Respiratory Rate 18 Blood Pressure Pulse Oximetry 97 09/27/17 19:51 09/27/17 20:00 09/27/17 20:15 Temperature 98.5 F Pulse Rate 55 L 57 L 60 Respiratory Rate 17 18 Blood Pressure 124/63 Pulse Oximetry 96 09/27/17 21:00 09/27/17 22:00 09/27/17 23:00 Temperature Pulse Rate 59 L 58 L 59 L Respiratory Rate Blood Pressure Pulse Oximetry 09/27/17 23:55 09/28/17 00:00 09/28/17 01:00 Temperature 97.8 F Pulse Rate 57 L 62 60 Respiratory Rate 16 Blood Pressure 118/58 L Pulse Oximetry 96 09/28/17 02:00 09/28/17 03:00 09/28/17 03:05 Temperature Pulse Rate 64 61 64 Respiratory Rate 18 Blood Pressure Pulse Oximetry 09/28/17 04:00 09/28/17 05:00 09/28/17 06:00 Temperature 97.8 F Pulse Rate 63 63 63 Respiratory Rate 16 Blood Pressure 133/63 Pulse Oximetry 96 09/28/17 07:00 09/28/17 07:32 09/28/17 08:00 Temperature 98.7 F Pulse Rate 60 62 Respiratory Rate 18 Blood Pressure 129/61 Pulse Oximetry 93 L 94 L 09/28/17 09:00 09/28/17 09:34 09/28/17 09:36 Temperature Pulse Rate 60 60 62 Respiratory Rate 16 Blood Pressure Pulse Oximetry 09/28/17 11:00 09/28/17 11:48 09/28/17 12:00 Temperature 98.2 F Pulse Rate 64 70 Respiratory Rate 18 18 Blood Pressure 152/69 H Pulse Oximetry 93 L 09/28/17 13:00 Temperature Pulse Rate 62 Respiratory Rate Blood Pressure Pulse Oximetry Labs: Laboratory Results - last 12 hr 09/27/17 09/28/17 09/28/17 06:10 03:24 03:24 WBC 8.5 RBC 4.14 L Hgb 12.2 L Hct 35.9 L MCV 86.8 MCH 29.4 MCHC 33.9 RDW 13.4 Plt Count 164 MPV 7.8 Neut % (Auto) 79.1 H Lymph % (Auto) 8.9 L [place] % (Auto) 9.1 H Eos % (Auto) 2.7 Baso % (Auto) 0.2 Neut # (Auto) 6.7 Lymph # (Auto) 0.8 L [place] # (Auto) 0.8 Eos # (Auto) 0.2 Baso # (Auto) 0.0 WBC Differential . Differential Comment Auto diff final Sodium 141 Potassium 3.7 Chloride 102 Carbon Dioxide 31.2 Anion Gap 8 BUN 21 H Creatinine 1.33 H Estimated GFR 52 L Random Glucose 112 H Calcium 7.5 L D MTS Gel Crossmatch See Detail Result Diagrams: 09/28/17 03:24 09/28/17 03:24 Imaging: Chest X-Ray 09/28/17 10:59 CONCLUSION: Right midlung and right basilar density, likely atelectasis. No pneumothorax Cardiovascular: RRR Pulmonary: CTA GI/: NABS, NT Incision: dry and intact CT: ~250ml since OR, no air leak Chest tube to water seal Encourage ambulation D/C morphine GRIZZLYMAN CXR in AM
[2017-09-28] MEDS: Temazepam 15 MG Capsule PO PRN (20:44)
--- NOTE | 2017-09-29 08:42 | ECG ---
Date Performed: 09/28/2017 Time Performed: 08:29:40 PTAGE: 77 years EKG: Sinus rhythm with 1st degree A-V block Inferior infarct - age undetermined Possible anterior infarct - age undete rmined Low QRS voltages in precordial leads Abnormal ECG PREVIOUS TRACING : 04/04/2016 09.35 DOCTOR: Rodolfo Oquendo Interpretating Date/Time 09/29/2017 08:33:13
[2017-09-29] MEDS: Atenolol 50 MG Tablet PO SCH (09:39)
[2017-09-29] MEDS: Senna/Docusate Sodium 8.6/50 MG Tablet PO SCH ×2 (09:39→21:01)
[2017-09-29] MEDS: Doxazosin 4 MG Tablet PO SCH ×2 (09:39→20:56)
[2017-09-29] MEDS: hydroCHLOROthiazide 25 MG Tablet PO SCH (09:39)
[2017-09-29] MEDS: Enoxaparin Inj 30 MG/0.3 ML Syringe SQ SCH (11:43)
--- NOTE | 2017-09-29 12:19 | P.PNCV ---
- Note CVT: Post Op Day #: 2 Subjective/Hospital Course: 09/28/17 Doing well, had a syncopal episode this morning with getting up following using morphine CONFERENCE ASSISTANT. Currently A and O x 4 and asymptomatic. 09/29/17 Doing well chest tube output 270ml/24 hrs with no air leak Objective: Vital Signs - 24 hr 09/28/17 13:00 09/28/17 14:00 09/28/17 14:55 Temperature Pulse Rate 62 62 59 L Respiratory Rate Blood Pressure Pulse Oximetry 09/28/17 14:57 09/28/17 15:33 09/28/17 15:37 Temperature 97.8 F Pulse Rate 60 60 65 Respiratory Rate 18 14 Blood Pressure 128/60 Pulse Oximetry 95 09/28/17 16:42 09/28/17 17:20 09/28/17 19:00 Temperature 98.5 F Pulse Rate 62 76 64 Respiratory Rate 22 Blood Pressure 131/59 L Pulse Oximetry 94 L 09/28/17 19:52 09/28/17 20:00 09/28/17 21:00 Temperature Pulse Rate 76 88 92 H Respiratory Rate 20 Blood Pressure Pulse Oximetry 99 09/28/17 22:00 09/28/17 23:00 09/29/17 00:00 Temperature 98.5 F Pulse Rate 80 77 74 Respiratory Rate 24 Blood Pressure 115/56 L Pulse Oximetry 96 09/29/17 03:00 09/29/17 03:33 09/29/17 04:00 Temperature 98.3 F Pulse Rate 77 77 86 Respiratory Rate 24 20 Blood Pressure 135/63 Pulse Oximetry 95 09/29/17 05:00 09/29/17 06:00 Temperature Pulse Rate 78 72 Respiratory Rate Blood Pressure Pulse Oximetry Result Diagrams: 09/28/17 03:24 09/28/17 03:24 Cardiovascular: RRR Pulmonary: CTA GI/: NABS, NT Incision: dry and intact Chest tube output a little high to remove today. Stim BM Encourage ambulation Anticipate D/C tomorrow or Saturday. CXR in AM
[2017-09-29] MEDS: Temazepam 15 MG Capsule PO PRN (20:55)
--- NOTE | 2017-09-30 06:12 | XR ---
EXAM DATE: 09/30/2017 5:25 AM EDT AGE/SEX: 77 years / Male INDICATIONS: Shortness of breath, possible pulmonary disease. CLINICAL DATA: This is the patient's subsequent encounter. Patient reports that signs and symptoms h ave been present for 4 - 6 days and indicates a pain score of 0/10. MEDICAL/SURGICAL HISTORY: Hypertension. . Hip replacement. Knee replacement. Right Middle Lobec matthew COMPARISON: [facility] – [place]ST 1V SINGLE AP, 09/28/2017. . FINDINGS: A single frontal expiratory view of the chest was performed. Right-sided chest tube in place. Wire lo ss in right perihilar density. No pneumothorax. Cardiomegaly and minimal bibasilar densities. CONCLUSION: 1. Right perihilar density minimal bibasilar densities. 2. No pneumothorax. Electronically signed by: Teja Mcghee MD 09/30/2017 6:11 AM EDT
[2017-09-30] MEDS: Atenolol 50 MG Tablet PO SCH (09:11)
[2017-09-30] MEDS: hydroCHLOROthiazide 25 MG Tablet PO SCH (09:11)
[2017-09-30] MEDS: Senna/Docusate Sodium 8.6/50 MG Tablet PO SCH ×2 (09:12→20:27)
[2017-09-30] MEDS: Doxazosin 4 MG Tablet PO SCH ×2 (09:16→20:28)
[2017-09-30] MEDS: Enoxaparin Inj 30 MG/0.3 ML Syringe SQ SCH (11:21)
--- NOTE | 2017-09-30 14:50 | P.PNCV ---
- Note Subjective/Hospital Course: 77 [address] to Dr Hagan's office , new findings of an asymptomatic right middle lobe lung mass. This was identified during workup of Prostate Ca. Pet needle BX demonstrated a 1.1cm RML nodule, path consistent with adenocarcinoma PMH: Lung CA, BPH, HTN, Linares neuroma , prostate ca surgery 09/27 1. Right posterolateral Muscle Sparing Thoracotomy 2. Right Middle Lobectomy 3. Mediastinal Lymph Node Dissection 4. 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 Currently A and O x 4 and asymptomatic. 09/29/17 Doing well chest tube output 270ml/24 hrs with no air leak 09/30 chest tube dc without difficulty doing well, pain controlled, await path Objective: Vital Signs - 24 hr 09/29/17 15:00 09/29/17 16:00 09/29/17 17:00 Temperature 97.6 F Pulse Rate 54 L 54 L 56 L Respiratory Rate 18 Blood Pressure 123/60 Pulse Oximetry 98 09/29/17 17:22 09/29/17 18:00 09/29/17 19:00 Temperature 98.9 F Pulse Rate 74 70 57 L Respiratory Rate 20 20 Blood Pressure 124/60 Pulse Oximetry 93 L 09/29/17 20:00 09/29/17 20:53 09/29/17 21:00 Temperature Pulse Rate 60 59 L Respiratory Rate 16 Blood Pressure Pulse Oximetry 09/29/17 21:25 09/29/17 22:00 09/29/17 22:06 Temperature Pulse Rate 65 56 L Respiratory Rate 20 18 Blood Pressure Pulse Oximetry 09/29/17 23:00 09/30/17 00:00 09/30/17 01:00 Temperature 97.5 F L Pulse Rate 56 L 57 L 59 L Respiratory Rate 16 Blood Pressure 126/59 L Pulse Oximetry 96 09/30/17 02:00 09/30/17 03:00 09/30/17 04:00 Temperature 98.5 F Pulse Rate 57 L 53 L 55 L Respiratory Rate 16 Blood Pressure 113/56 L Pulse Oximetry 97 09/30/17 04:19 09/30/17 05:00 09/30/17 06:00 Temperature Pulse Rate 48 L 54 L 54 L Respiratory Rate 18 Blood Pressure Pulse Oximetry 09/30/17 07:00 09/30/17 08:00 09/30/17 09:00 Temperature 97.8 F Pulse Rate 51 L 55 L 54 L Respiratory Rate 18 Blood Pressure 133/63 Pulse Oximetry 97 09/30/17 09:47 09/30/17 10:00 09/30/17 11:00 Temperature 98.4 F Pulse Rate 56 L 63 65 Respiratory Rate 16 16 Blood Pressure 162/72 H Pulse Oximetry 95 93 L 09/30/17 12:00 09/30/17 13:00 09/30/17 13:57 Temperature Pulse Rate 69 66 71 Respiratory Rate Blood Pressure Pulse Oximetry GENERAL: A&O x 3 SKIN: Warm and dry. 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 EYES: No scleral icterus. No injection or drainage. NECK: Supple, trachea midline. No JVD or lymphadenopathy. CARDIOVASCULAR: Regular rate and rhythm without murmurs, gallops, or rubs. RESPIRATORY: Breath sounds equal bilaterally. No accessory muscle use. GASTROINTESTINAL: Abdomen soft, non-tender, nondistended. MUSCULOSKELETAL: No cyanosis, or edema. BACK: Nontender without obvious deformity. No CVA tenderness. Labs: Laboratory Results - last 12 hr 09/27/17 06:10 MTS Gel Crossmatch See Detail Result Diagrams: 09/28/17 03:24 09/29/17 11:37 - Plan (2) S/P thoracotomy Plan: pulm toileting OOB ambulate dc in am pain control
--- NOTE | 2017-09-30 15:54 | P.DCO ---
- Home Health Nursing Order: Medical education, Signs/symptoms of disease process, Wound care and dressing changes, Nursing assessment with vital signs Instructions: Thoracic Surgery patients Mandatory frequency Assess and evaluation, 2-3 x a week for one week Initial visit 1. Review post chest surgery instructions chest precautions, Activity, Elastic hose, Incision care, Driving, Incentive spirometry, Smoking, [place] , Work and other) 2. Need Betadine to paint incision 3. Medication reconciliation 4. Importance of follow up care/ check on appointments 5. Make calendar record temperature daily 6. When to call Home nurse, review instructions, phone list 7. Incentive Spirometry, demonstration Visit 1- Begin discharge instruction for patient family and/ or caregiver using teach back method- 1. Signs and symptoms of infection 2. Disease characteristics 3. Medicines and side effects 4. Foods and nutrition/ appetite 5. Infection control/ hand washing/ hygiene Visit 2- Continue teaching 1. Discharge instructions- include additional information on smoking cessation , Visit 3- Continue teaching- 1. Cough and deep breathing, incision monitoring. For any questions please call : / [facility] [phone] Incentive spirometry Q1 hr x 10, while awake, also use acapella device hourly whole Chest wall precautions: NO pushing or pulling, ( pt must use chest pillow support chest with all activities and with coughing Daily incision care: ok to shower ( 48hrs after chest tube removed) and then daily, no tub bath. Wash all incisions with liquid dial soap, clean wash cloth to each site, rinse and pat dry. Observe for any signs of infection, such as drainage which is dark yellow, martino, green or foul smelling. Immediately report to the surgeon any drainage from the chest incision, or legs, and for any abnormal drainage from the chest tube sites. Notify surgeon if any temp > 101.5 degrees F. When specialty dressing removed/ or if you do not have one, continue to shower daily as above, then rinse and pat incision dry and paint with betadine daily x 5 days. Allow steri strips to fall off if you have any. Avoid lotions, creams, salves, oils, etc. for the first month For Dr. Wood patients , please obtain PA & Lat CXR in 2 weeks, results to Dr. Wood ( prescription will be given) ( ) (Tele: ) , F/U appointment: as per DC instructions: PCP in 2 weeks, CV surgeon 2 weeks, Post Form Remover 3-4 weeks For any questions regarding incisions/ dressing / meds / post op care or above Symptoms, Saturday 8am-5pm Heart & Vascular Surgery Office ( Dr. Hagan & Dr. Wood), After Hours / Nights (5pm -8am) Weekends and Holidays Please call [facility] Cardiac Intermediate Care Unit (CIC) Charge Nurse - Certification I have seen patient Mukund Celestin on 09/30/17. My clinical findings support the need for the requested home health care services because: Deconditioned with increased weakness I certify that my clinical findings support that this patient is homebound because: Post-op weakness
[2017-09-30] MEDS: Temazepam 15 MG Capsule PO PRN (20:27)
--- NOTE | 2017-10-01 06:07 | XR ---
EXAM DATE: 10/01/2017 5:45 AM EDT AGE/SEX: 77 years / Male INDICATIONS: Chest tube removal, rule out pneumothorax. CLINICAL DATA: This is the patient's subsequent encounter. Patient reports that signs and symptoms h ave been present for 1 week and indicates a pain score of 0/10. MEDICAL/SURGICAL HISTORY: Hypertension. . Hip replacement. Knee replacement. Right Middle Lobec matthew. COMPARISON: [facility] [place], CHEST EXPIRATION ONLY, 09/30/2017. . FINDINGS: A single AP view of the chest demonstrates right mid lung density and right basilar density. Slight v olume loss on the right. Cardiomegaly. Chest tube removed. No pneumothorax The cardiomediastinal cont ours are unremarkable. Osseous structures are intact. CONCLUSION: No pneumothorax. Electronically signed by: Teja Mcghee MD 10/01/2017 6:06 AM EDT
[2017-10-01] MEDS: Senna/Docusate Sodium 8.6/50 MG Tablet PO SCH (08:56)
[2017-10-01] MEDS: Doxazosin 4 MG Tablet PO SCH (08:56)
[2017-10-01] MEDS: hydroCHLOROthiazide 25 MG Tablet PO SCH (08:56)
[2017-10-01] MEDS: Atenolol 50 MG Tablet PO SCH (08:56)
--- NOTE | 2017-10-01 10:15 | P.DS ---
Date of admission: 09/27/17 05:14 Primary care physician: Silvino Jimenez MD Attending physician on discharge: eHma Hagan Anticipated date of discharge: 10/01/17 Brief History from admission: 77 [address] presented to Dr Hagan's office , new findings of an asymptomatic right middle lobe lung mass. This was identified during workup of Prostate Ca. Pet needle BX demonstrated a 1.1cm RML nodule, path consistent with adenocarcinoma PMH: Lung CA, BPH, HTN, Linares neuroma , prostate ca surgery 09/27 1. Right posterolateral Muscle Sparing Thoracotomy 2. Right Middle Lobectomy 3. Mediastinal Lymph Node Dissection 4. Intercostal Nerve Block DS: Diagnosis - Discharge Diagnosis (1) Lung cancer Status: Acute (2) S/P thoracotomy Status: Acute DS: Medications - Discharge Medications Prescriptions: oxycodone-acetaminophen 1 tab PO Q4HR #40 tab sennosides [Senna Lax] 17.2 mg PO Q12H PRN #30 tab PRN Reason: Moderate Constipation DS: Summary Hospital Course: surgery 09/27 1. Right posterolateral Muscle Sparing Thoracotomy 2. Right Middle Lobectomy 3. Mediastinal Lymph Node Dissection 4. 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 09/29/17 Doing well chest tube output 270ml/24 hrs with no air leak 09/30 chest tube dc without difficulty doing well, pain controlled, await path 10/01 unable to wean off 02 await home walk test by RT plan to dc pt home today path pending - Time Spent with Patient Total time spent providing and/or coordinating discharge services: Greater than 30 minutes - Quality: VTE Deep Vein Thrombosis/Pulmonary Embolism Present on Admission: No Exam Vital signs: Vital Signs 09/30/17 11:00 09/30/17 12:00 09/30/17 13:00 Temperature 98.4 F Pulse Rate 65 69 66 Respiratory Rate 16 Blood Pressure 162/72 H Pulse Oximetry 93 L 09/30/17 13:57 09/30/17 15:00 09/30/17 15:02 Temperature 99 F Pulse Rate 71 64 60 Respiratory Rate 18 Blood Pressure 155/70 H Pulse Oximetry 92 L 09/30/17 15:27 09/30/17 16:00 09/30/17 17:00 Temperature Pulse Rate 60 66 64 Respiratory Rate 18 Blood Pressure Pulse Oximetry 09/30/17 18:00 09/30/17 19:00 09/30/17 20:00 Temperature 98.3 F Pulse Rate 64 60 58 L Respiratory Rate 18 Blood Pressure 145/67 H Pulse Oximetry 92 L 09/30/17 20:31 09/30/17 21:00 09/30/17 22:00 Temperature Pulse Rate 64 64 54 L Respiratory Rate 18 Blood Pressure Pulse Oximetry 09/30/17 23:00 10/01/17 00:00 10/01/17 01:00 Temperature 98.7 F Pulse Rate 55 L 58 L 58 L Respiratory Rate 16 18 Blood Pressure 140/65 Pulse Oximetry 95 10/01/17 02:00 10/01/17 03:00 10/01/17 03:30 Temperature 98.2 F Pulse Rate 58 L 59 L 53 L Respiratory Rate 18 16 Blood Pressure 147/67 H Pulse Oximetry 94 L 94 L 10/01/17 04:00 10/01/17 05:00 10/01/17 06:00 Temperature Pulse Rate 54 L 58 L 54 L Respiratory Rate Blood Pressure Pulse Oximetry 10/01/17 07:00 10/01/17 08:00 10/01/17 09:00 Temperature 98.3 F Pulse Rate 60 67 82 Respiratory Rate 18 Blood Pressure 169/74 H Pulse Oximetry 92 L 10/01/17 09:17 10/01/17 10:00 Temperature Pulse Rate 62 67 Respiratory Rate 18 Blood Pressure Pulse Oximetry 95 Intake & Output 09/30/17 10/01/17 10/01/17 18:59 06:59 18:59 Intake Total 720 / 720 680 / 680 Output Total 800 / 800 550 / 550 Balance -80 / -80 130 / 130 Weight 108.5 kg Intake: Oral 720 / 720 680 / 680 Output: Urine 800 / 800 550 / 550 Other: Date of Last Bowel Movement 09/26/17 09/26/17 09/26/17 # Bowel Movements 0 - Constitutional no acute distress - Routine HEENT Exam Head: Present: normocephalic, atraumatic - Routine Neck Exam Present: supple, full ROM - Routine Chest/Breast/Axilla Exam Chest wall: Present: tenderness - Routine Respiratory Exam Present: decreased breath sounds Comments: diminished right lower lobe - Routine Cardiovascular Exam Present: RRR, S1, S2 - Routine Abdominal Exam Present: soft, normoactive bowel sounds - Routine Skin Exam Present: intact, wounds Comments: incision intact right posterior lateral wall dressing intact to chest tube site - Routine Neurological Exam Present: alert, oriented X3, CN II-XII intact Results Procedures completed during hospitalization: 09/27 PROCEDURES 1. Right posterolateral Muscle Sparing Thoracotomy 2. Right Middle Lobectomy 3. Mediastinal Lymph Node Dissection 4. Intercostal Nerve Block Pending studies at discharge: Pending at discharge 09/27/17 13:58 Surgical [PTH] Routine - Impressions ITS Impressions Chest X-Ray 10/01/17 06:00 CONCLUSION: No pneumothorax. Discharge Plan - Discharge Disposition Patient Disposition: W/Home Health Service - Discharge Condition Condition: Good - Discharge Order Discharge Orders: Discharge Order (Routine); Ordered 10/01/17 Ordered By: Aimee Viveros - Discharge Details Anticipated Discharge Date: 10/01/17 Discharge Comment: once eval by RT for walk test ( home o2 ) - Physicians Team Primary Care Provider: Silvino Jimenez Attending Provider: Hema Hagan Other Providers: [facility] - Rxs /Orders / Referrals /Forms Prescriptions: New oxycodone-acetaminophen 5-325 mg Tablet 1 tab PO Q4HR Qty: 40 RF: 0 sennosides [Senna Lax] 8.6 mg Tablet 17.2 mg PO Q12H PRN (Reason: Moderate Constipation) Qty: 30 RF: 0 Continue atenolol 50 mg Tablet 50 mg PO DAILY doxazosin 4 mg Tablet 4 mg PO BID hydrochlorothiazide 25 mg Tablet 25 mg PO DAILY lisinopril 20 mg Tablet 20 mg PO DAILY simvastatin 20 mg Tablet 40 mg PO QPM temazepam 15 mg Capsule 30 mg PO HS Referrals: Silvino Jimenez MD [Primary Care Provider] - See Instructions ( Your appointment has been scheduled for [10/17/17] at [1:15 pm] If you cannot make this appointment, please call the office to reschedule ) Aimee Viveros [ADVANCE RN PRACTITIONER] - See Instructions ( Your appointment has been scheduled for [10/15/17] at [11:00 am] If you cannot make this appointment, please call the office to reschedule ) Aaron Shi MD [Physician] - See Instructions ( Your appointment has been scheduled for [10/23/17] at [10:30 AM] If you cannot make this appointment, please call the office to reschedule ) - Discharge Instructions Additional Instructions: Incentive spirometry Q1 hr x 10, while awake, also use acapella device hourly whole Chest wall precautions: NO pushing or pulling, ( pt must use chest pillow support chest with all activities and with coughing Daily incision care: ok to shower ( 48hrs after chest tube removed) and then daily, no tub bath. Wash all incisions with liquid dial soap, clean wash cloth to each site, rinse and pat dry. Observe for any signs of infection, such as drainage which is dark yellow, martino, green or foul smelling. Immediately report to the surgeon any drainage from the chest incision, or legs, and for any abnormal drainage from the chest tube sites. Notify surgeon if any temp > 101.5 degrees F. When specialty dressing removed/ or if you do not have one, continue to shower daily as above, then rinse and pat incision dry and paint with betadine daily x 5 days. Allow steri strips to fall off if you have any. Avoid lotions, creams, salves, oils, etc. for the first month For Dr. Wood patients , please obtain PA & Lat CXR in 2 weeks, results to Dr. 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 Hagan & Dr. Wood), After Hours / Nights (5pm -8am) Weekends and Holidays Please call [facility] Cardiac Intermediate Care Unit (CIC) Charge Nurse
[2017-10-01] MEDS: Enoxaparin Inj 30 MG/0.3 ML Syringe SQ SCH (11:17)
== END 2017-10-01 17:22 | disposition home health service (06) ==
LOC: HSDI 05:14 → HCPC 13:24
PROVIDERS: ADMIT Thoracic Surgery (Cardiothoracic Vascular Surgery); ATTEND Thoracic Surgery (Cardiothoracic Vascular Surgery)

== ENCOUNTER 2018-01-14 11:23 | Observation (INO) ==
--- NOTE | 2018-01-14 12:04 | ED ---
HPI General Chief Complaint: Chest Pain Stated Complaint: Medical Time Seen by Provider: 01/14/18 11:59 Source: patient Mode of arrival: EMS Limitations: no limitations History of Present Illness HPI narrative: Patient presently being on the treatment for lung cancer by Dr. Gutierrez, apparently had removal of the tumor without any removal of lung tissue? . Patient comes in complaining of chest pain, pressure, substernal, nonradiating, not associated with nausea vomiting. Called EMS after the pain persisted for 2 hours. Unchanged by nitro, aspirin 324 given by EMS. cardio:quadrat pcp: dr cristobal fregoso Related Data Home Medications Medication Instructions Recorded Confirmed atenolol 50 mg PO DAILY 09/05/17 09/27/17 doxazosin 4 mg PO BID 09/05/17 09/27/17 hydrochlorothiazide 25 mg PO DAILY 09/05/17 09/27/17 simvastatin 40 mg PO QPM 09/05/17 09/27/17 temazepam 30 mg PO HS 09/05/17 09/27/17 lisinopril 20 mg PO DAILY 09/24/17 09/27/17 Previous Rx's Medication Instructions Recorded oxycodone-acetaminophen 1 tab PO Q4HR #40 tab 09/30/17 sennosides [Senna Lax] 17.2 mg PO Q12H PRN #30 tab 09/30/17 Allergies Allergy/AdvReac Type Severity Reaction Status Date / Time cortisone Allergy Severe Rash Verified 09/27/17 05:51 Sulfa (Sulfonamide Allergy Severe Itching Verified 09/27/17 05:51 Antibiotics) Review of Systems ROS: all other systems reviewed are negative PMFSH History History Provided By: Patient Medical History Medical History Arthritis (Acute) Constipated (Acute) Diverticulitis (Acute) Hard of hearing (Acute) High cholesterol (Acute) 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) Lung cancer (Acute) Prostate cancer (Acute) Prostate disorder (Acute) Wears glasses (Acute) Wears hearing aid in both ears (Acute) Surgical History Surgical History History of arthroplasty of left hip (Acute) History of arthroplasty of right knee (Acute) History of biopsy of bladder (Acute) History of hemorrhoidectomy (Acute) Hx of LASIK (Acute) Social History Social History Substance History: No History of Abuse Second Hand Smoke Exposure: No Smoking Status: Former smoker How Often Do You Have a Drink Containing Alcohol: 4 or more times a week Recent Travel in [facility] within the Last 8 Weeks: No Recent Out of Country Travel within the Last 8 Weeks: No Exam Narrative Exam Narrative: GENERAL: Elderly male in no apparent distress. SKIN: Warm and dry. HEAD: Atraumatic. Normocephalic. EYES: Pupils equal and round. No scleral icterus. No injection or drainage. ENT: No nasal bleeding or discharge. Mucous membranes pink and moist. NECK: Trachea midline. No JVD. CARDIOVASCULAR: Regular rate and rhythm. no rubs or gallops RESPIRATORY: No accessory muscle use. Clear to auscultation. Breath sounds equal bilaterally. GASTROINTESTINAL: Abdomen soft, non-tender, nondistended. No rebound or guarding MUSCULOSKELETAL: Extremities without clubbing, cyanosis, or edema. No obvious deformities. NEUROLOGICAL: Awake and alert. No obvious cranial nerve deficits. Motor grossly within normal limits. Five out of 5 muscle strength in the arms and legs. Normal speech. PSYCHIATRIC: Appropriate mood and affect; insight and judgment normal. Course Initial Documented Vital Signs Temperature 98.3 F 01/14/18 11:59 Pulse Rate 54 L 01/14/18 11:59 Blood Pressure 209/88 H 01/14/18 11:59 Pulse Oximetry 96 01/14/18 11:59 Last Documented Vital Signs Temperature 98.3 F 01/14/18 11:59 Pulse Rate 54 L 01/14/18 11:59 Blood Pressure 209/88 H 01/14/18 11:59 Pulse Oximetry 96 01/14/18 11:59 Medical Decision Making MDM Narrative Medical decision making narrative: No leukocytosis no left shift, mild anemia of 10.5/29.8 decreased from the previous September 2017 values of 12.2/36 Coagulation profile within normal limits Electrolytes are all within normal limits. Normal kidney liver and pancreatic functions First set of cardiac enzymes negative Chest x-ray ordered read by radiologist as the heart is enlarged, there is atelectasis and a small amount of fluid along the fissure on the right which is improved when compared to previous. Medical Screen Exam Complete: Yes Emergency Medical Condition: Yes Medical Records Medical records reviewed: Yes I reviewed the patient's medical records. Lab Data Result diagrams: 01/14/18 12:00 01/14/18 12:00 Lab Results 01/14/18 01/14/18 01/14/18 Range/Units 12:00 12:00 12:00 WBC 6.0 (4.0-11.0) th/mm3 RBC 3.33 L (4.50-5.90) mil/mm3 Hgb 10.5 L (13.0-17.0) gm/dL Hct 29.8 L (39.0-51.0) % MCV 89.6 (80.0-100.0) fL MCH 31.5 (27.0-34.0) pg MCHC 35.2 (32.0-36.0) % RDW 20.0 H (11.6-17.2) % Plt Count 199 (150-450) th/mm3 MPV 7.1 (7.0-11.0) fL Neut % (Auto) 77.8 H (16.0-70.0) % Lymph % (Auto) 12.3 (9.0-44.0) % Gooding % (Auto) 9.2 H (0.0-8.0) % Eos % (Auto) 0.5 (0.0-4.0) % Baso % (Auto) 0.2 (0.0-2.0) % Neut # (Auto) 4.6 (1.8-7.7) th/mm3 Lymph # (Auto) 0.7 L (1.0-4.8) th/mm3 Gooding # (Auto) 0.5 (0.0-0.9) th/mm3 Eos # (Auto) 0.0 (0.0-0.4) th/mm3 Baso # (Auto) 0.0 (0.0-0.2) th/mm3 WBC Differential . Differential Comment Auto diff final PT 11.1 (9.8-11.6) sec INR 1.1 Ratio APTT 27.3 (23.4-31.7) sec Sodium 137 (136-145) meq/L Potassium 3.7 (3.5-5.1) meq/L Chloride 100 (98-107) meq/L Carbon Dioxide 30.9 (21.0-32.0) meq/L Anion Gap 6 (5-15) meq/L BUN 14 (7-18) mg/dL Creatinine 1.07 (0.60-1.30) mg/dL Estimated GFR 67 L (>89) mL/min Random Glucose 103 (74-106) mg/dL Calcium 9.0 (8.5-10.1) mg/dL Total Bilirubin 0.4 (0.2-1.0) mg/dL AST 40 H (15-37) U/L ALT 59 (12-78) U/L Alkaline Phosphatase 104 (45-117) U/L Total Creatine Kinase 102 (39-308) U/L CK-MB (CK-2) 1.6 (0.5-3.6) ng/mL Troponin I Less than 0.02 L (0.02-0.05) ng/mL B-Natriuretic Peptide (0-100) pg/mL Total Protein 7.5 (6.4-8.2) g/dL Albumin 3.7 (3.4-5.0) g/dL Lipase 142 (73-393) U/L 01/14/18 Range/Units 12:00 WBC (4.0-11.0) th/mm3 RBC (4.50-5.90) mil/mm3 Hgb (13.0-17.0) gm/dL Hct (39.0-51.0) % MCV (80.0-100.0) fL MCH (27.0-34.0) pg MCHC (32.0-36.0) % RDW (11.6-17.2) % Plt Count (150-450) th/mm3 MPV (7.0-11.0) fL Neut % (Auto) (16.0-70.0) % Lymph % (Auto) (9.0-44.0) % Gooding % (Auto) (0.0-8.0) % Eos % (Auto) (0.0-4.0) % Baso % (Auto) (0.0-2.0) % Neut # (Auto) (1.8-7.7) th/mm3 Lymph # (Auto) (1.0-4.8) th/mm3 Gooding # (Auto) (0.0-0.9) th/mm3 Eos # (Auto) (0.0-0.4) th/mm3 Baso # (Auto) (0.0-0.2) th/mm3 WBC Differential Differential Comment PT (9.8-11.6) sec INR Ratio APTT (23.4-31.7) sec Sodium (136-145) meq/L Potassium (3.5-5.1) meq/L Chloride (98-107) meq/L Carbon Dioxide (21.0-32.0) meq/L Anion Gap (5-15) meq/L BUN (7-18) mg/dL Creatinine (0.60-1.30) mg/dL Estimated GFR (>89) mL/min Random Glucose (74-106) mg/dL Calcium (8.5-10.1) mg/dL Total Bilirubin (0.2-1.0) mg/dL AST (15-37) U/L ALT (12-78) U/L Alkaline Phosphatase (45-117) U/L Total Creatine Kinase (39-308) U/L CK-MB (CK-2) (0.5-3.6) ng/mL Troponin I (0.02-0.05) ng/mL B-Natriuretic Peptide 240 H (0-100) pg/mL Total Protein (6.4-8.2) g/dL Albumin (3.4-5.0) g/dL Lipase (73-393) U/L Imaging Data Radiologist's impression: Chest X-Ray 01/14/18 12:04 CONCLUSION: Resolving atelectasis and effusion along the major fissure on the right. The left lung is clear. ECG Data EKG Prior to Arrival: No Attestation: I personally reviewed and interpreted this ECG as follows: Prior ECG tracings: not available for review Interpretation: Junctional rhythm with frequent monofocal PVCs Discharge Plan Discharge Disposition Patient Disposition: 30 Still Patient Discharge Condition Condition: Stable Physicians Team ED Provider: Ulices Spaulding Primary Care Provider: UNKNOWN, Rxs /Orders / Referrals /Forms Prescriptions: No Action simvastatin 20 mg Tablet 40 mg PO QPM RF: 0 doxazosin 4 mg Tablet 4 mg PO BID RF: 0 hydrochlorothiazide 25 mg Tablet 25 mg PO DAILY RF: 0 temazepam 15 mg Capsule 30 mg PO HS RF: 0 atenolol 50 mg Tablet 50 mg PO DAILY RF: 0 lisinopril 20 mg Tablet 20 mg PO DAILY RF: 0 sennosides [Senna Lax] 8.6 mg Tablet 17.2 mg PO Q12H PRN (Reason: Moderate Constipation) Qty: 30 RF: 0 oxycodone-acetaminophen 5-325 mg Tablet 1 tab PO Q4HR Qty: 40 RF: 0 Discharge Instructions Patient Printed Instructions: Chest Pain (ED) Status ED Status: With Doctor
[2018-01-14 12:28] LABS: Baso % (Auto) 0.2 % (0.0-2.0); Eos % (Auto) 0.5 % (0.0-4.0); Hematocrit 29.8 % (39.0-51.0); Hemoglobin 10.5 gm/dL (13.0-17.0); Lymph # (Auto) 0.7 th/mm3 (1.0-4.8); Lymph % (Auto) 12.3 % (9.0-44.0); Mean Corpuscular HGB Conc 35.2 % (32.0-36.0); Mean Corpuscular Hemoglobin 31.5 pg (27.0-34.0); Mean Corpuscular Volume 89.6 fL (80.0-100.0); Mean Platelet Volume 7.1 fL (7.0-11.0); Mono # (Auto) 0.5 th/mm3 (0.0-0.9); Mono % (Auto) 9.2 % (0.0-8.0); Neut # (Auto) 4.6 th/mm3 (1.8-7.7); Neut % (Auto) 77.8 % (16.0-70.0); Platelet Count 199 th/mm3 (150-450); Red Blood Count 3.33 mil/mm3 (4.50-5.90)
--- NOTE | 2018-01-14 12:37 | XR ---
EXAM DATE: 01/14/2018 12:33 PM EST AGE/SEX: 77 years / Male INDICATIONS: Chest pain and shortness of breath today CLINICAL DATA: This is the patient's initial encounter. Patient reports that signs and symptoms have been present for 1 day and indicates a pain score of 10/10. MEDICAL/SURGICAL HISTORY: Non-responsive. . right middle lobectomy, right chest tube and remova l [place] [facility] [place]. . FINDINGS: The heart is enlarged. There is atelectasis and a small amount of fluid along the fissure on the righ t. This is improved when compared to previous. The left lung is clear. The bony structures are intact . CONCLUSION: Resolving atelectasis and effusion along the major fissure on the right. The left lung is clear. Electronically signed by: Rocky Hu MD 01/14/2018 12:36 PM EST
[2018-01-14 12:45] LABS: Albumin 3.7 g/dL (3.4-5.0); Anion Gap 6 meq/L (5-15); Aspartate Aminotransferase 40 U/L (15-37); Blood Urea Nitrogen 14 mg/dL (7-18); Carbon Dioxide 30.9 meq/L (21.0-32.0); Chloride 100 meq/L (98-107); Glomerular Filtration Rate 67 mL/min (>89); Glucose,Random 103 mg/dL (74-106); Lipase 142 U/L (73-393); Potassium 3.7 meq/L (3.5-5.1); Sodium 137 meq/L (136-145)
[2018-01-14 12:49] LABS: Activated Partial Thrombo Time 27.3 sec (23.4-31.7); INR 1.1 Ratio; Prothrombin Time 11.1 sec (9.8-11.6)
[2018-01-14 12:50] LABS: Alanine Aminotransferase 59 U/L (12-78); Alkaline Phosphatase 104 U/L (45-117); Creatine Kinase 102 U/L (39-308); Total Protein 7.5 g/dL (6.4-8.2)
[2018-01-14 13:02] LABS: Creatine Kinase MB 1.6 ng/mL (0.5-3.6)
[2018-01-14] MEDS ORDERED: hydrALAZINE HCl Inj 20 MG/ML Vial IV.PUSH ONE (13:05)
--- NOTE | 2018-01-14 13:50 | CT ---
EXAM DATE: 01/14/2018 1:44 PM EST AGE/SEX: 77 years / Male INDICATIONS: Chest pain since last night CLINICAL DATA: This is the patient's initial encounter. Patient reports that signs and symptoms have been present for 1 day and indicates a pain score of 1/10. MEDICAL/SURGICAL HISTORY: Carcinoma, lung. Carcinoma, prostatic. Diverticulosis. Lobectomy. RADIATION DOSE: 22.84 CTDI (mGy) COMPARISON: [facility] – [place], CT BIOPSY LUNG RIGHT, 09/05/2017. . TECHNIQUE: Volumetric scanning was performed using a multi-row detector CT scanner during bolus infu madelin of 73 ml Omnipaque 350 (iohexol) nonionic water-soluble contrast as a single exam dose. The ashli a was post processed with a variety of visualization algorithms including full volume maximum intensi ty projection and sliding thin slab reformation. Using automated exposure control and adjustment of the mA and/or kV according to patient size, radiation dose was kept as low as reasonably achievable t o obtain optimal diagnostic quality images. DICOM format image data is available electronically for review and comparison. FINDINGS: The examination is of good diagnostic quality. No pulmonary embolus is identified. The heart is moderately enlarged. There is advanced atherosclerotic calcification of the coronary art eries. No pericardial effusion is seen. No hilar or mediastinal adenopathy is present. Examination of the pulmonary parenchyma demonstrates findings consistent with previous lobectomy. The lungs are otherwise clear. There is minimal effusion on the right. The limited portions of upper abdomen visualized demonstrate a lobulated left renal cyst measuring ap proximately 11.8 cm in maximum dimension. CONCLUSION: 1. Post lobectomy changes on the right. 2. Minimal effusion on the right. 3. No pulmonary embolus identified. The lungs are otherwise clear. Electronically signed by: Rocky Hu MD 01/14/2018 1:49 PM EST
--- NOTE | 2018-01-14 14:42 | P.HPFP ---
History of Present Illness Primary Care Physician: UNKNOWN <Henri Nielson 01/16/18 16:31> UNKNOWN <Marco Lanza 01/14/18 14:41> Chief Complaint: Chest pain <Marco Lanza 01/14/18 19:14> History of Present Illness: He is a 77-year-old male with a past medical history significant for lung cancer currently undergoing treatment and prostate cancer who presented with substernal chest pressure. This morning at about 930 he began to have chest pressure over his entire chest. It was nonradiating and does not change with position or breathing. He spoke with his neighbor who is a nurse who took his blood pressure and found it to be 180/103 at that time. This chest pressure was constant for a couple of hours and then became reduced and intermittent. He has only mild chest pressure at the time of exam. He denies nausea, vomiting, diaphoresis, shortness of breath, palpitations. He has no recent illness or travel. He is receiving chemotherapy for his lung cancer and had a lobectomy in September. He currently receives chemotherapy on Wednesdays and is due for chemotherapy tomorrow. He does report that he has had headache in the morning for the last 3-4 days. In the ED he had elevated blood pressures with a high of 209/88, continued chest pressure, EKG with frequent PVCs, and negative troponins x1. CTA done in the ED was negative for pulmonary effusion. Past medical history: Lung cancer status post lobectomy in September currently receiving chemotherapy, has not had radiation yet History of diverticulitis Current prostate cancer Hypertension Hyperlipidemia Cataract of the left eye Past surgical history: Hip replacement and knee replacement Hemorrhoidectomy Social: History of alcohol abuse Approximately [id number] smoking history, quit at age of 39 Denies any history of other drug use <Marco Lanza 01/14/18 20:20> - Diagnosis (1) Chest pain (2) Hypertension (3) Hyperlipemia (4) Lung cancer <Henri Nielson 01/16/18 16:31> (1) Chest pain (2) Hypertension (3) Hyperlipemia (4) Lung cancer <Marco Lanza 01/14/18 20:04> Review of Systems All other systems reviewed negative except as stated in HPI <Marco Lanza - 01/14/18 20:20> PMFSH - History History Provided By: Patient <Marco Lanza 01/14/18 14:41> - Medical History Medical History: Medical History (Last Reviewed 01/14/18 @ 12:03 by Ulices Spaulding) Arthritis Constipated Diverticulitis Hard of hearing High cholesterol Hx deployment Lung cancer Prostate cancer Prostate disorder Wears glasses Wears hearing aid in both ears <Henri Nielson - 01/16/18 16:31> Medical History (Last Reviewed 01/14/18 @ 12:03 by Ulices Spaulding) Arthritis Constipated Diverticulitis Hard of hearing High cholesterol Hx deployment Lung cancer Prostate cancer Prostate disorder Wears glasses Wears hearing aid in both ears <Marco Lanza 01/14/18 14:41> - Surgical History Surgical History: Surgical History (Last Reviewed 01/14/18 @ 12:03 by Ulices Spaulding) History of arthroplasty of left hip History of arthroplasty of right knee History of biopsy of bladder History of hemorrhoidectomy Hx of LASIK <Henri Nielson 01/16/18 16:31> Surgical History (Last Reviewed 01/14/18 @ 12:03 by Ulices Spaulding) History of arthroplasty of left hip History of arthroplasty of right knee History of biopsy of bladder History of hemorrhoidectomy Hx of LASIK <Marco Lanza 01/14/18 14:41> - Tobacco History Second Hand Smoke Exposure: No <Marco Lanza 01/14/18 14:41> Tobacco Use In Past 30 Days: No <Marco Lanza 01/14/18 14:41> Smoking Status: Former smoker <Marco Lanza 01/14/18 14:41> Tobacco Type: Cigarettes <Marco Lanza 01/14/18 14:41> - Alcohol History How Often Do You Have a Drink Containing Alcohol: Never <Marco Lanza 01/14/18 14:41> - Substance Use History Substance History: No History of Abuse <Marco Lanza 01/14/18 14:41> - Travel History Recent Travel in the [place] Within the Last 8 Weeks: No <Marco Lanza - 01/14/18 14:41> Recent Travel Out of the Country Within the Last 8 Weeks: No <Marco Lanza - 01/14/18 14:41> - Immunization History Tetanus Immunization: <5 Years <Marco Lanza - 01/14/18 14:41> Medications and Allergies Allergies Allergy/AdvReac Type Severity Reaction Status Date / Time cortisone Allergy Severe Rash Verified 09/27/17 05:51 Sulfa (Sulfonamide Allergy Severe Itching Verified 09/27/17 05:51 Antibiotics) <Henri Nielson - 01/16/18 16:31> Home Medications Medication Instructions Recorded Confirmed Type atenolol 50 mg PO QPM 09/05/17 01/14/18 History doxazosin 4 mg PO BID 09/05/17 01/14/18 History hydrochlorothiazide 25 mg PO DAILY 09/05/17 01/14/18 History simvastatin 40 mg PO DAILY 09/05/17 01/14/18 History temazepam 30 mg PO HS 09/05/17 01/14/18 History lisinopril 20 mg PO DAILY 09/24/17 01/14/18 History <Henri Nielson - 01/16/18 16:31> Active Medications: Active Medications Acetaminophen (Tylenol) 650 mg PO Q4H PRN PRN Reason: Temp > 100.4 Last Admin: 01/15/18 04:29 Dose: 650 mg Atenolol (Tenormin) 50 mg PO Q24H [facility] Last Admin: 01/14/18 20:17 Dose: 50 mg Doxazosin Mesylate (Cardura) 4 mg PO BID [facility] Last Admin: 01/15/18 08:35 Dose: 4 mg Enoxaparin Sodium (Lovenox Inj) 40 mg SQ Q24H [facility] Last Admin: 01/14/18 15:45 Dose: 40 mg Hydralazine HCl (Apresoline) 25 mg PO Q4H PRN PRN Reason: SEE DOSE INSTRUCTIONS Hydrochlorothiazide (Hydrodiuril) 25 mg PO DAILY [facility] Last Admin: 01/15/18 08:35 Dose: 25 mg Lisinopril (Prinivil) 20 mg PO DAILY [facility] Last Admin: 01/15/18 08:35 Dose: 20 mg Ondansetron HCl (Zofran Inj) 4 mg IV.PUSH Q6H PRN PRN Reason: NAUSEA OR VOMITING Pravastatin Sodium (Pravachol) 80 mg PO HS [facility] Last Admin: 01/14/18 20:17 Dose: 80 mg Sodium Chloride (Ns Flush) 2 ml IV.FLUSH UNSCH PRN PRN Reason: FLUSH AFTER USING IV ACCESS Temazepam (Restoril) 15 mg PO HS PRN PRN Reason: SLEEP Last Admin: 01/15/18 00:16 Dose: 15 mg <Marianela Nielsonil R - 01/16/18 16:31> Active Medications Atenolol (Tenormin) 50 mg PO Q24H [facility] Doxazosin Mesylate (Cardura) 4 mg PO BID [facility] Hydrochlorothiazide (Hydrodiuril) 25 mg PO DAILY [facility] Lisinopril (Prinivil) 20 mg PO DAILY [facility] Non-Formulary Medication (Simvastatin [Simvastatin]) 40 mg PO QPM [facility] Sodium Chloride (Ns Flush) 2 ml IV.FLUSH UNSCH PRN PRN Reason: FLUSH AFTER USING IV ACCESS <Marco Lanza - 01/14/18 14:41> Exam Vital signs: Intake & Output 01/15/18 01/16/18 01/16/18 18:59 06:59 18:59 Other: Date of Last Bowel Movement 01/13/18 <NisreenHenri R - 01/16/18 16:31> Vital Signs 01/14/18 11:59 01/14/18 12:04 01/14/18 14:06 Temperature 98.3 F Pulse Rate 54 L 68 Respiratory Rate 17 Blood Pressure 209/88 H 197/84 H Pulse Oximetry 96 96 100 Intake & Output 01/13/18 01/14/18 01/14/18 18:59 06:59 18:59 Weight 102.058 kg <Marco Lanza - 01/14/18 14:41> Narrative: General: Well-developed, alert, and in no acute distress. Appears stated age HEENT: Atraumatic, non-icteric sclera and no conjunctival injection, moist mucous membranes Neck: Supple, trachea midline, no JVD Cardiac: Regular rate and rhythm without murmurs. Pain is not reproducible with palpation. Pulmonary: Non-labored breathing. Lungs clear to auscultation bilaterally with good air movement Abdomen: Normal bowel sounds, soft and non-tender without rebound or guarding Extremities: No edema, 2+ pedal pulses, capillary refill less than 2 seconds <MylaAvelinoMarco J - 01/14/18 19:14> Results - Labs Result diagrams: 01/15/18 04:51 01/15/18 04:51 <Henri Nielson - 01/16/18 16:31> Abnormal lab results 01/14/18 01/14/18 01/14/18 Range/Units 12:00 12:00 12:00 RBC 3.33 L (4.50-5.90) mil/mm3 Hgb 10.5 L (13.0-17.0) gm/dL Hct 29.8 L (39.0-51.0) % RDW 20.0 H (11.6-17.2) % Neut % (Auto) 77.8 H (16.0-70.0) % [place] % (Auto) 9.2 H (0.0-8.0) % Lymph # (Auto) 0.7 L (1.0-4.8) th/mm3 Estimated GFR 67 L (>89) mL/min AST 40 H (15-37) U/L Troponin I Less than 0.02 L (0.02-0.05) ng/mL B-Natriuretic Peptide 240 H (0-100) pg/mL Short CBC 01/14/18 Range/Units 12:00 WBC 6.0 (4.0-11.0) th/mm3 Hgb 10.5 L (13.0-17.0) gm/dL Hct 29.8 L (39.0-51.0) % Plt Count 199 (150-450) th/mm3 BMP 01/14/18 12:00 Sodium 137 Potassium 3.7 Chloride 100 Carbon Dioxide 30.9 BUN 14 Creatinine 1.07 Calcium 9.0 Cardiac Enzymes 01/14/18 Range/Units 12:00 Total Creatine Kinase 102 (39-308) U/L CK-MB (CK-2) 1.6 (0.5-3.6) ng/mL Troponin I Less than 0.02 L (0.02-0.05) ng/mL Liver Function 01/14/18 Range/Units 12:00 Total Bilirubin 0.4 (0.2-1.0) mg/dL AST 40 H (15-37) U/L ALT 59 (12-78) U/L Alkaline Phosphatase 104 (45-117) U/L Albumin 3.7 (3.4-5.0) g/dL <Marco Lanza - 01/14/18 14:41> - Imaging Impressions Chest CTA 01/14/18 12:04 CONCLUSION: 1. Post lobectomy changes on the right. 2. Minimal effusion on the right. 3. No pulmonary embolus identified. The lungs are otherwise clear. Chest X-Ray 01/14/18 12:04 CONCLUSION: Resolving atelectasis and effusion along the major fissure on the right. The left lung is clear. <Marco Lanza - 01/14/18 14:41> Caprini VTE Risk Assessment Caprini VTE Risk Assessment: Moderate/High Risk (score >= 2) <Marco Lanza - 01/14/18 20:20> Caprini Risk Assessment Model: Point Value = 1 Point Value = 2 Point Value = 3 Point Value = 5 Age 41-60 Minor surgery BMI > 25 kg/m2 Swollen legs Varicose veins or History of unexplained or recurrent spontaneous Oral contraceptives or hormone replacement Sepsis (< 1 month) Serious lung disease, including pneumonia (< 1 month) Abnormal pulmonary function Acute myocardial infarction Congestive heart failure (< 1 month) History of inflammatory bowel disease Medical patient at bed rest Age 61-74 Arthroscopic surgery Major open surgery (> 45 min) Laparoscopic surgery (> 45 min) Malignancy Confined to bed (> 72 hours) Immobilizing plaster cast Central venous access Age >= 75 History of VTE Family history of VTE Factor V Leiden Prothrombin [id number] Lupus anticoagulant Anticardiolipin antibodies Elevated serum homocysteine Heparin-induced thrombocytopenia Other congenital or acquired thrombophilia Stroke (< 1 month) Elective arthroplasty Hip, pelvis, or leg fracture Acute spinal cord injury (< 1 month) <Henri Nielson - 01/16/18 16:31> Point Value = 1 Point Value = 2 Point Value = 3 Point Value = 5 Age 41-60 Minor surgery BMI > 25 kg/m2 Swollen legs Varicose veins or History of unexplained or recurrent spontaneous Oral contraceptives or hormone replacement Sepsis (< 1 month) Serious lung disease, including pneumonia (< 1 month) Abnormal pulmonary function Acute myocardial infarction Congestive heart failure (< 1 month) History of inflammatory bowel disease Medical patient at bed rest Age 61-74 Arthroscopic surgery Major open surgery (> 45 min) Laparoscopic surgery (> 45 min) Malignancy Confined to bed (> 72 hours) Immobilizing plaster cast Central venous access Age >= 75 History of VTE Family history of VTE Factor V Leiden Prothrombin [id number] Lupus anticoagulant Anticardiolipin antibodies Elevated serum homocysteine Heparin-induced thrombocytopenia Other congenital or acquired thrombophilia Stroke (< 1 month) Elective arthroplasty Hip, pelvis, or leg fracture Acute spinal cord injury (< 1 month) <Marco Lanza J - 01/14/18 14:41> Prophylaxis Regimen: Total Risk Factor Score Risk Level Prophylaxis Regimen 0-1 Low Early ambulation 2 Moderate Order ONE of the following: *Sequential Compression Device (SCD) *Heparin 5000 units SQ BID 3-4 Higher Order ONE of the following medications: *Heparin 5000 units SQ TID *Enoxaparin/Lovenox 40 mg SQ daily (WT < 150 kg, CrCl > 30 mL/min) *Enoxaparin/Lovenox 30 mg SQ daily (WT < 150 kg, CrCl > 10-29 mL/min) *Enoxaparin/Lovenox 30 mg SQ BID (WT < 150 kg, CrCl > 30 mL/min) AND/OR *Sequential Compression Device (SCD) 5 or more Highest Order ONE of the following medications: *Heparin 5000 units SQ TID (Preferred with Epidurals) *Enoxaparin/Lovenox 40 mg SQ daily (WT < 150 kg, CrCl > 30 mL/min) *Enoxaparin/Lovenox 30 mg SQ daily (WT < 150 kg, CrCl > 10-29 mL/min) *Enoxaparin/Lovenox 30 mg SQ BID (WT < 150 kg, CrCl > 30 mL/min) AND *Sequential Compression Device (SCD) <Henri Nielson - 01/16/18 16:31> Total Risk Factor Score Risk Level Prophylaxis Regimen 0-1 Low Early ambulation 2 Moderate Order ONE of the following: *Sequential Compression Device (SCD) *Heparin 5000 units SQ BID 3-4 Higher Order ONE of the following medications: *Heparin 5000 units SQ TID *Enoxaparin/Lovenox 40 mg SQ daily (WT < 150 kg, CrCl > 30 mL/min) *Enoxaparin/Lovenox 30 mg SQ daily (WT < 150 kg, CrCl > 10-29 mL/min) *Enoxaparin/Lovenox 30 mg SQ BID (WT < 150 kg, CrCl > 30 mL/min) AND/OR *Sequential Compression Device (SCD) 5 or more Highest Order ONE of the following medications: *Heparin 5000 units SQ TID (Preferred with Epidurals) *Enoxaparin/Lovenox 40 mg SQ daily (WT < 150 kg, CrCl > 30 mL/min) *Enoxaparin/Lovenox 30 mg SQ daily (WT < 150 kg, CrCl > 10-29 mL/min) *Enoxaparin/Lovenox 30 mg SQ BID (WT < 150 kg, CrCl > 30 mL/min) AND *Sequential Compression Device (SCD) <Marco Lanza - 01/14/18 14:41> Assessment and Plan - Assessment (1) Chest pain Code(s): R07.9 - Chest pain, unspecified Status: Acute (2) Hypertension Code(s): I10 - Essential (primary) hypertension Status: Acute (3) Hyperlipemia Code(s): E78.5 - Hyperlipidemia, unspecified Status: Acute (4) Lung cancer Code(s): C34.90 - Malignant neoplasm of unspecified part of unspecified bronchus or lung Status: Acute <Henri Nielson - 01/16/18 16:31> (1) Chest pain Code(s): R07.9 - Chest pain, unspecified Status: Acute (2) Hypertension Code(s): I10 - Essential (primary) hypertension Status: Acute (3) Hyperlipemia Code(s): E78.5 - Hyperlipidemia, unspecified Status: Acute (4) Lung cancer Code(s): C34.90 - Malignant neoplasm of unspecified part of unspecified bronchus or lung Status: Acute <Marco Lanza - 01/14/18 20:04> - Assessment and Plan He is a 77-year-old male with lung cancer currently undergoing treatment, status post lobectomy in September who presented with chest pain at rest. Chest pain: -His pain is atypical, but the possibility of cardiac chest pain must be considered -His risk factors include hypertension and hyperlipidemia and significant smoking history -CTPA was negative for pulmonary embolism -His pain may be related to his lobectomy back in September, however it is new, non -positional, and not exacerbated by breathing -EKG in the ED was negative for acute ST changes -First troponin was negative, repeat troponin x2 ordered -Continuous telemetry Hypertension: -Continue home medication lisinopril 20 mg daily, atenolol 50 mg daily, doxazosin 4 mg twice daily -Hydralazine 25 mg as needed SBP greater than or equal to 180 Hyperlipidemia: Continue home medication pravastatin 80 mg at night Fluids: Adequate p.o. intake Electrolytes: monitor and replete as needed Nutrition: Cardiac diet GI prophylaxis: not indicated VTE prophylaxis: Lovenox at prophylactic dose Patient was seen and examined with Dr. Ugarte <Marco Lanza - 01/14/18 20:20> - Attending Attestation THIS CASE WAS DISCUSSED WITH THE RESIDENT PHYSICIAN. I HAVE REVIEWED THE RECORD AND AGREE WITH THE ABOVE NOTE AND PLAN OF CARE WAS DISCUSSED. I HAVE AUTHORIZED THE ORDER FOR PLACEMENT IN OUT-PATIENT OBSERVATION STATUS. Henri Nielson MD <Henri Nielson - 01/16/18 16:31>
[2018-01-14] MEDS ORDERED: Enoxaparin Inj 40 MG/0.4 ML Syringe SQ SCH (16:00)
[2018-01-14] MEDS: Acetaminophen 325 MG Tablet PO PRN (18:12)
[2018-01-14] MEDS: Doxazosin 4 MG Tablet PO SCH (20:17)
[2018-01-14] MEDS ORDERED: hydrALAZINE 25 MG Tablet PO PRN (20:20)
[2018-01-14] MEDS ORDERED: Atenolol 50 MG Tablet PO SCH (21:00)
[2018-01-14] MEDS: Temazepam 15 MG Capsule PO PRN (21:28)
[2018-01-15] MEDS: Temazepam 15 MG Capsule PO PRN (00:16)
[2018-01-15] MEDS: Acetaminophen 325 MG Tablet PO PRN (04:29)
[2018-01-15 07:01] LABS: Baso % (Auto) 0.3 % (0.0-2.0); Eos % (Auto) 1.1 % (0.0-4.0); Hematocrit 27.8 % (39.0-51.0); Hemoglobin 9.9 gm/dL (13.0-17.0); Lymph # (Auto) 0.8 th/mm3 (1.0-4.8); Lymph % (Auto) 23.3 % (9.0-44.0); Mean Corpuscular HGB Conc 35.6 % (32.0-36.0); Mean Corpuscular Hemoglobin 31.3 pg (27.0-34.0); Mean Platelet Volume 7.6 fL (7.0-11.0); Mono # (Auto) 0.5 th/mm3 (0.0-0.9); Mono % (Auto) 15.3 % (0.0-8.0); Neut # (Auto) 2.1 th/mm3 (1.8-7.7); Platelet Count 193 th/mm3 (150-450); Red Blood Count 3.16 mil/mm3 (4.50-5.90); Red Cell Distribution Width 18.7 % (11.6-17.2); White Blood Count 3.5 th/mm3 (4.0-11.0)
[2018-01-15 07:32] LABS: Calcium 8.7 mg/dL (8.5-10.1); Carbon Dioxide 28.1 meq/L (21.0-32.0); Potassium 3.6 meq/L (3.5-5.1)
[2018-01-15] MEDS: Doxazosin 4 MG Tablet PO SCH (08:35)
[2018-01-15] MEDS ORDERED: Lisinopril 20 MG Tablet PO SCH (09:00)
[2018-01-15] MEDS ORDERED: hydroCHLOROthiazide 25 MG Tablet PO SCH (09:00)
[2018-01-15 11:40] VITALS: BP 154/71; PULSE 54; RESP 20; TEMP 97.7; O2SAT 96
--- NOTE | 2018-01-15 12:15 | P.PNFP ---
Subjective Interval history: Patient is doing better this morning and has no chest pain today. He called his oncologist's office to let them know that he is in the hospital because he is scheduled for chemotherapy today. He wonders if the chemotherapy caused the chest pain because he had not been feeling well after his last session. <Kassi Whaley U - 01/15/18 13:19> Results - Labs Result diagrams: 01/15/18 04:51 01/15/18 04:51 <Henri Nielson R - 01/16/18 13:08> Abnormal lab results 01/14/18 01/14/18 01/14/18 Range/Units 12:00 12:00 12:00 WBC (4.0-11.0) th/mm3 RBC 3.33 L (4.50-5.90) mil/mm3 Hgb 10.5 L (13.0-17.0) gm/dL Hct 29.8 L (39.0-51.0) % RDW 20.0 H (11.6-17.2) % Neut % (Auto) 77.8 H (16.0-70.0) % [place] % (Auto) 9.2 H (0.0-8.0) % Lymph # (Auto) 0.7 L (1.0-4.8) th/mm3 Estimated GFR 67 L (>89) mL/min AST 40 H (15-37) U/L Troponin I Less than 0.02 L (0.02-0.05) ng/mL B-Natriuretic Peptide 240 H (0-100) pg/mL 01/14/18 01/14/18 01/15/18 Range/Units 18:18 23:46 04:51 WBC 3.5 L (4.0-11.0) th/mm3 RBC 3.16 L (4.50-5.90) mil/mm3 Hgb 9.9 L (13.0-17.0) gm/dL Hct 27.8 L (39.0-51.0) % RDW 18.7 H (11.6-17.2) % Neut % (Auto) (16.0-70.0) % [place] % (Auto) 15.3 H (0.0-8.0) % Lymph # (Auto) 0.8 L (1.0-4.8) th/mm3 Estimated GFR (>89) mL/min AST (15-37) U/L Troponin I Less than 0.02 L Less than 0.02 L (0.02-0.05) ng/mL B-Natriuretic Peptide (0-100) pg/mL 01/15/18 Range/Units 04:51 WBC (4.0-11.0) th/mm3 RBC (4.50-5.90) mil/mm3 Hgb (13.0-17.0) gm/dL Hct (39.0-51.0) % RDW (11.6-17.2) % Neut % (Auto) (16.0-70.0) % [place] % (Auto) (0.0-8.0) % Lymph # (Auto) (1.0-4.8) th/mm3 Estimated GFR 72 L (>89) mL/min AST (15-37) U/L Troponin I (0.02-0.05) ng/mL B-Natriuretic Peptide (0-100) pg/mL Short CBC 01/14/18 01/15/18 Range/Units 12:00 04:51 WBC 6.0 3.5 L (4.0-11.0) th/mm3 Hgb 10.5 L 9.9 L (13.0-17.0) gm/dL Hct 29.8 L 27.8 L (39.0-51.0) % Plt Count 199 193 (150-450) th/mm3 BMP 01/14/18 01/15/18 12:00 04:51 Sodium 137 139 Potassium 3.7 3.6 Chloride 100 103 Carbon Dioxide 30.9 28.1 BUN 14 14 Creatinine 1.07 1.01 Calcium 9.0 8.7 Cardiac Enzymes 01/14/18 01/14/18 01/14/18 Range/Units 12:00 18:18 23:46 Total Creatine Kinase 102 (39-308) U/L CK-MB (CK-2) 1.6 (0.5-3.6) ng/mL Troponin I Less than 0.02 L Less than 0.02 L Less than 0.02 L (0.02-0.05) ng/mL Liver Function 01/14/18 Range/Units 12:00 Total Bilirubin 0.4 (0.2-1.0) mg/dL AST 40 H (15-37) U/L ALT 59 (12-78) U/L Alkaline Phosphatase 104 (45-117) U/L Albumin 3.7 (3.4-5.0) g/dL <DawitmarcelleKassi U - 01/15/18 12:15> - Imaging Impressions Chest CTA 01/14/18 12:04 CONCLUSION: 1. Post lobectomy changes on the right. 2. Minimal effusion on the right. 3. No pulmonary embolus identified. The lungs are otherwise clear. Chest X-Ray 01/14/18 12:04 CONCLUSION: Resolving atelectasis and effusion along the major fissure on the right. The left lung is clear. <JuddKassi U - 01/15/18 12:15> Physical Exam Vital signs: Intake & Output 01/15/18 01/16/18 01/16/18 18:59 06:59 18:59 Other: Date of Last Bowel Movement 01/13/18 <Henri Nielson R - 01/16/18 13:08> Vital Signs 01/14/18 14:06 01/14/18 15:11 01/14/18 17:06 Temperature 97.4 F L Pulse Rate 68 62 67 Respiratory Rate 17 17 18 Blood Pressure 197/84 H 160/70 H 167/72 H Pulse Oximetry 100 96 894 H 01/14/18 20:11 01/14/18 20:32 01/15/18 00:00 Temperature 99 F 98.4 F Pulse Rate 63 55 L 50 L Respiratory Rate 18 16 Blood Pressure 158/69 H 158/71 H Pulse Oximetry 96 96 01/15/18 00:07 01/15/18 04:12 01/15/18 04:16 Temperature 98.2 F Pulse Rate 54 L 55 L 52 L Respiratory Rate 18 Blood Pressure 157/77 H Pulse Oximetry 98 01/15/18 08:00 01/15/18 09:35 01/15/18 11:39 Temperature 98.4 F 97.7 F Pulse Rate 48 L 54 L Respiratory Rate 18 20 Blood Pressure 185/87 H 157/70 H 154/71 H Pulse Oximetry 97 96 Intake & Output 01/14/18 01/15/18 01/15/18 18:59 06:59 18:59 Intake Total 240 / 240 Balance 240 / 240 Weight 102.058 kg 99.6 kg Intake: Oral 240 / 240 Other: # Voids 3 Date of Last Bowel Movement 01/13/18 01/13/18 01/13/18 Weight On Admission 99.6 kg <Kassi Whaley U - 01/15/18 12:15> Narrative: General: Well-developed, alert, and in no acute distress. Appears stated age HEENT: Atraumatic, non-icteric sclera and no conjunctival injection, moist mucous membranes Neck: Supple, trachea midline, no JVD Cardiac: Regular rate and rhythm without murmurs. Pulmonary: Non-labored breathing. Lungs clear to auscultation bilaterally with good air movement Abdomen: Normal bowel sounds, soft and non-tender without rebound or guarding Extremities: No cyanosis or edema <Kassi Whaley - 01/15/18 13:19> Assessment and Plan - Assessment (1) Chest pain Code(s): R07.9 - Chest pain, unspecified Status: Acute (2) Hypertension Code(s): I10 - Essential (primary) hypertension Status: Acute (3) Hyperlipemia Code(s): E78.5 - Hyperlipidemia, unspecified Status: Acute (4) Lung cancer Code(s): C34.90 - Malignant neoplasm of unspecified part of unspecified bronchus or lung Status: Acute <Henri Nielson R - 01/16/18 13:08> (1) Chest pain Code(s): R07.9 - Chest pain, unspecified Status: Acute (2) Hypertension Code(s): I10 - Essential (primary) hypertension Status: Acute (3) Hyperlipemia Code(s): E78.5 - Hyperlipidemia, unspecified Status: Acute (4) Lung cancer Code(s): C34.90 - Malignant neoplasm of unspecified part of unspecified bronchus or lung Status: Acute <Kassi Whaley U - 01/16/18 08:21> - Assessment and Plan Pt is a 77-year-old male with lung cancer currently undergoing treatment, status post lobectomy in September who presented with chest pain at rest. Chest pain: -Cardiac chest pain rule out completed: troponin x3 <0.02 -EKG in the ED was negative for acute ST changes with multiple PVCs, 2nd EKG showed occasional PVCs -BNP 240 -Continuous telemetry Hypertension: -Bp much improved to 150's systolic -Continue home medication lisinopril 20 mg daily, atenolol 50 mg daily, doxazosin 4 mg twice daily -Hydralazine 25 mg as needed SBP greater than or equal to 180 Hyperlipidemia: Continue home medication pravastatin 80 mg at night Fluids: Adequate p.o. intake Electrolytes: monitor and replete as needed Nutrition: Cardiac diet GI prophylaxis: not indicated VTE prophylaxis: Lovenox at prophylactic dose Patient was seen and examined with Dr. Nielson & Dr. Ugarte Possible discharge home today, will need to discuss case with patient's physical director <Kassi Whaley - 01/15/18 13:19> - Attending Attestation This patient was seen and evaluated with the resident physician. I agree with the plan of care as discussed with me and documented in the resident note. Henri Nielson MD <Henri Nielson - 01/16/18 13:08>
--- NOTE | 2018-01-15 12:32 | ECG ---
Date Performed: 01/15/2018 Time Performed: 09:53:28 PTAGE: 77 years EKG: Sinus rhythm WITH FIRST DEGREE AV BLOCK WITH OCCASIONAL VENTRICULAR PREMATURE COMPLEXES ABNORMAL ECG PREVIOUS TRACING : 01/14/2018 11.58 DOCTOR: Rodolfo Oquendo Interpretating Date/Time 01/15/2018 12:31:05
--- NOTE | 2018-01-15 12:47 | ECG ---
Date Performed: 01/14/2018 Time Performed: 11:58:46 PTAGE: 77 years EKG: SUPRAVENTRICULAR RHYTHM ATYPICAL ECG NO PREVIOUS TRACING DOCTOR: Rodolfo Oquendo Interpretating Date/Time 01/15/2018 12:45:50
== END 2018-01-15 15:14 | disposition home or self-care (01) ==
LOC: NEDH 11:23 → NEPC 11:23 → HCIN 17:06
PROVIDERS: ADMIT Family Medicine; ATTEND Family Medicine